=== PATIENT | male | born 1965 | race Caucasian/White ===

== ENCOUNTER 2023-05-27 08:36 | Observation (INO) ==
--- NOTE | 2023-04-29 09:54 | PAT Medication Instructions ---
Medication Instructions Date of Service April 29, 2023 Home Medications omeprazole 20 mg tablet,delayed release 20 mg PO QAM fexofenadine 180 mg tablet (Moon Allergy) 180 mg PO QAM losartan 100 mg tablet (Cozaar) 100 mg PO QAM famotidine 20 mg tablet 20 mg PO QAM ibuprofen 200 mg tablet 600 mg PO QAM lisinopril 10 mg tablet 10 mg PO QAM ASK your surgeon for instructions ibuprofen 200 mg tablet 600 mg PO QAM DO NOT take the morning of surgery fexofenadine 180 mg tablet (Moon Allergy) 180 mg PO QAM losartan 100 mg tablet (Cozaar) 100 mg PO QAM lisinopril 10 mg tablet 10 mg PO QAM Take morning of surgery With a small sip of water, OTHERWISE NOTHING TO EAT OR DRINK AFTER MIDNIGHT: omeprazole 20 mg tablet,delayed release 20 mg PO QAM famotidine 20 mg tablet 20 mg PO QAM Other Notes If you have any questions please call us at [phone] or [phone] or [phone] or [phone]
--- NOTE | 2023-05-05 08:53 | History & Physical Report ---
Date of Service May 05, 2023 date of surgery: 05/27/23 Procedure: Left Knee Poly Exchange Surgeon: Antony Tate Assessment & Plan (1) Painful total knee replacement, left: Plan: Risk and benefits of the procedure were discussed in detail, he has elected proceed with surgical invention. Plan to be left knee polyethylene exchange. Will place on aspirin 81 mg twice a day for 1 month postop. Patient will require overnight stay with plan on discharge home with home health physical therapy. Follow-up 2 weeks after surgery sooner if he is having any issues The risks and benefits have been discussed including, but not limited to, risk of infection, nerve injury, stiffness, loss of motion, failure to improve, etc. Reasonable outcomes and options of treatment were discussed. An explanation of appropriate alternatives to the procedure that may be advantageous were discussed and their risks and benefits, as well as the risks and benefits of not proceeding with treatment. I offered to answer any additional inquiries concerning the treatment involved. All the patient's questions were answered. The patient is agreeable, understanding of the treatment plan and alternatives, and wishes to proceed with the treatment plan. History of Present Illness Chief Complaint: left knee pain Primary Care Provider: EDIN PCP Alphonse presents for preop evaluation prior to left knee poly exchange. He has a history of left total knee replacement performed in [place] [address] Tate, was doing reasonably well up until recently. He states about a month ago he began having increased laxity in his knee, denies any injuries or trauma. X-rays were taken which did not show any acute findings or signs of loosening. At this point, further care as was discussed and would like to proceed with a left knee poly exchange. Sizes are size 5 femur, 5 tibia, 9 polyethylene and 32 patella Allergies Allergy/AdvReac Type Severity Reaction Status Date / Time No Known Allergies Allergy Verified 04/24/23 09:31 Home Medications Medication Instructions Recorded Confirmed Type omeprazole 20 mg tablet,delayed 20 mg PO QAM 07/24/18 04/24/23 History release fexofenadine 180 mg tablet 180 mg PO QAM 08/19/21 04/24/23 History (Moon Allergy) losartan 100 mg tablet (Cozaar) 100 mg PO QAM 08/19/21 04/24/23 History famotidine 20 mg tablet 20 mg PO QAM 04/24/23 04/24/23 History ibuprofen 200 mg tablet 600 mg PO QAM 04/24/23 04/24/23 History lisinopril 10 mg tablet 10 mg PO QAM 04/24/23 04/24/23 History Past Med/Surg History Medical History Alcohol use GERD (gastroesophageal reflux disease) Hypertension Surgical History History of arthroscopy of left knee x3 History of arthroscopy of right knee x3 History of hernia surgery History of total bilateral knee replacement B/L TKA (01/22/11): SAB + PNB at [facility] Family History Other No family history of adverse response to anesthesia Social History Smoking Status: Current every day smoker Cigarettes Per Day: 3 cigars a day (advised); Second Hand Exposure: No; Do You Dip or Chew Tobacco: Yes (chews (advised)); Tobacco Cessation Education Requested by Patient: No Hx Alcohol Use: Yes ("roughly 8 beers a night") Alcohol type: beer Hx Substance Use: No Preferred Language: Khmer Communication Ability: Effective Magazine Supervisor Required: No Beliefs That Will Affect Care: None Current Living Situation: Spouse and Family Current Living Situation Comment: Lives with and 17yr old daughter Other Information That Helps Us Care for You: No Feels Safe at Home: Yes Safety Concerns: Feels Safe At This Time Assistive Devices: Glasses Review of Systems Review of Systems: All systems reviewed & are unremarkable except as noted in HPI & below Constitutional: no fever, no chills and no sweats Respiratory: no cough and no dyspnea Cardiovascular: no chest pain, no dyspnea and no orthopnea Gastrointestinal: no abdominal pain, no nausea and no vomiting Musculoskeletal: as per Subjective / HPI Physical Exam Constitutional: WD/WN, vitals as above no acute distress Respiratory: normal respiratory effort, lungs clear to auscultation no respiratory distress, no labored breathing and does not use accessory muscles Cardiovascular: RRR, no murmur, no edema Gastrointestinal (Abdomen): normal bowel sounds, soft, nontender, no hepatosplenomegaly Musculoskeletal: Left Knee Exam Ambulates with a limp, overall neutral alignment, there is no atrophy warmth or ecchymosis noted, mild effusion, maximum tenderness anterior knee joint. negative patellar Apprehension , no crepitation with motion, valgus stress Negative, Varus stress Negative, no Extensor lag, Pain with Active range of motion, also passive painful ROM, Range of motion 0/3/115. No pain with active/passive ROM of ankle. Lower Extremity Strength normal. Lower Extremity Neuro-vascular is normal Results & Data Results & Data Diagnostic Findings 3 views left knee: Cemented total knee arthroplasty in acceptable position and alignment. No evidence of loosening or loss of fixation is noted. No evidence of osteolysis. The patella is tracking well and is in acceptable position.
--- NOTE | 2023-05-06 09:21 | Anesthesiology Consultation ---
Date of Service May 06, 2023 Assessment & Plan (1) Encounter for pre-operative examination: - COVID screening: Per assessment on 05/06: No known COVID-19 positive contacts or current COVID-19 related symptoms. Travel screen negative. At surgeon discretion if preop Covid testing being done. - PCP visit (04/29/23): "PMHx EtOH dependence/HTN/GERD/elevated fasting glucose.. Reviewed the procedure and risks, especially with regard to his h/o difficult airway for intubation as well as ongoing tobacco and alcohol use.. He is deemed a low/moderate risk for complications of surgery and may elect to proceed..Sinusitis resolving, continue supportive care.. Alcohol dependence 10- 12 beers daily.. Cessation reviewed.. Pt elects to continue" > Patient subs equently seen at [facility] 05/06/23 and indicates feeling well/denies infectious/Covid- related symptoms. Per PCP records, h/o difficult intubation- per patient, possible with remote surgery but states that he was never told any issues with anesthesia/intubation in the past. Attempts to obtain more information unsuccessful. SAB without issue with 2011 B/L TKA at [facility] - Heavy ETOH use: 8-10 beers/day (has been trying to decrease ETOH use). Typically between 1711-9790. No morning ETOH use per patient. Chart Review Chart Review: Acceptable Risk for Surgery and Patient seen in Pre Admission Testing Teaching & Discussion Pre-Anesthesia Teaching/Discussion Notes: Instructed NPO after midnight before surgery,except medications with 15 cc of water. Medication instructions provided according to the [facility] guidelines. History Surgery Operation Date: 05/27/23 08:25 Proposed Procedures p Left Knee Poly Exchange - Antony Tate DO Height/Weight Height: 5 ft 9 in Weight: 68 kg Allergies Allergy/AdvReac Type Severity Reaction Status Date / Time No Known Allergies Allergy Verified 04/24/23 09:31 Medications Home Medications Medication Instructions Recorded Confirmed Last Taken omeprazole 20 mg tablet,delayed 20 mg PO QAM 07/24/18 04/24/23 08/19/21 release fexofenadine 180 mg tablet 180 mg PO QAM 08/19/21 04/24/23 08/18/21 (Moon Allergy) losartan 100 mg tablet (Cozaar) 100 mg PO QAM 08/19/21 04/24/23 08/19/21 famotidine 20 mg tablet 20 mg PO QAM 04/24/23 04/24/23 Unknown ibuprofen 200 mg tablet 600 mg PO QAM 04/24/23 04/24/23 Unknown lisinopril 10 mg tablet 10 mg PO QAM 04/24/23 04/24/23 Unknown Past Medical History Medical History Alcohol use GERD (gastroesophageal reflux disease) Hypertension Exercise / Class Metabolic Activity II 4-5 Yardwork/Stairs/Walk up hill (one FS (no CP, no SOB)) Past Family History Family History Other No family history of adverse response to anesthesia Past Surgical History Surgical History History of arthroscopy of left knee x3 History of arthroscopy of right knee x3 History of hernia surgery History of total bilateral knee replacement B/L TKA (01/22/11): SAB + PNB at [facility] Past Anesthesia History No Hx of Anesthesia Complications and No Family Hx of Anesthesia Complications History of PONV No Hx of PONV and No Hx of Motion Sickness Social History Smoking Status: Current every day smoker tobacco type: cigars and smokeless tobacco Smoking cigarettes per day: 3 cigars a day (advised) Do You Dip or Chew Tobacco: Yes (chews (advised)) Hx Alcohol Use: Yes ("roughly 8 beers a night") Alcohol type: beer alcohol intake frequency: 3 or more drinks per day (8-10 beers/day (has been trying to decrease ETOH use). Typically between 7082-4633. No morning ETOH use per patient.) Hx Substance Use: No substance use type: does not use Review of Systems Patient denies chest pain, shortness of breath, dyspnea on exertion, fever, chills, cough, wheezing, palpitations. Physical Exam Vital Signs VITALS BP 166/92 P 86 TEMP 98.8 SP02 99%RA RESP 16 PHYSICAL Full cervical extension range of motion. Full TMJ range of motion. TMD 3.5 finger breaths Mallampati Score 2 Dentition: intact Lungs: clear throughout to auscultation Cardiac: regular rate and rhythm, no murmurs noted Spine: normal Carotid arteries: negative bruit Extremities: no LE edema Lab Results Anesthesia Preop Results Results Anesthesia Widget: WBC 9.14 K/ul (4.8-10.8) 05/06/23 Hgb 14.2 g/dl (14.0-18.0) 05/06/23 Hct 39.4 % (42.0-52.0) L 05/06/23 Plt 241 K/uL (130-400) 05/06/23 Na 139 mmol/L (136-145) 05/06/23 K 4.3 mmol/L (3.5-5.1) 05/06/23 Cl 109 mmol/L (98-107) H 05/06/23 CO2 26 mmol/L (21-32) 05/06/23 BUN 14 mg/dl (6-23) 05/06/23 Creat 0.81 mg/dl (0.6-1.4) 05/06/23 Glucose Level 109 mg/dl (70-99(Fasting)) H 05/06/23 PT 10.9 Seconds (9.0-12.0) 05/06/23 PTT 27.3 Seconds (21.0-31.0) 05/06/23 INR 1.0 (0.9-1.1) 05/06/23 HA1c 5.4 % (4.5-5.6) 05/06/23 Urine Color Yellow 05/06/23 Urine Appearance Clear (Clear) 05/06/23 Urine pH 6.0 (4.5-7.5) 05/06/23 Urine Specific [place] 1.019 (1.000-1.030) 05/06/23 Urine Protein Negative (Negative) 05/06/23 Urine Glucose (UA) Negative (Negative) 05/06/23 Urine Ketones Trace (Negative) H 05/06/23 Urine Blood Negative (Negative) 05/06/23 Urine Nitrite Negative (Negative) 05/06/23 Urine Bilirubin Negative (Negative) 05/06/23 Urine Urobilinogen Negative (Negative) 05/06/23 Urine Leukocyte Esterase Negative (Negative) 05/06/23 Blood Type O Positive 05/06/23 Antibody Screen NEGATIVE 05/06/23 Testing Electrocardiogram Date: 05/06/23 NSR at 79bpm. Possible LAE. LVH. No significant change compared to 08/19/2021 per resolution manager comparison. Chest X-Ray Date: 05/06/23 Findings: + NAD COVID-19 Risk Screen Screening Information COVID-19 Screen Date: 05/06/23 Exposure 21 Days Family/Household +COVID Last 21 Days: No Exposure 10 Days Any COVID Exposure Last 10 Days: No Symptoms Last 10 Days Experienced COVID Sx Last 10 Days: No + COVID 0-90 Days COVID + in Last 0-90 Days: No
[~2023-05-27 08:36] MED LIST: ACETAMINOPHEN 500 MG TAB PO SCH; CeleBREX 200 MG CAP PO SCH; FAMOTIDINE 20 MG TAB PO SCH; GABAPENTIN 600 MG DOSE PO SCH; LR 500ML BOLUS, THEN 15ML/HR IV SCH; METOCLOPRAMIDE HCL 10 MG TABLET PO SCH; ROPIVACAINE 0.5% 5 MG/ML 30 ML VIAL ONE; ROPIVACAINE 0.5% HCL/PF 150 MG, BUPIVACAINE 0.75% MPF 20 ML, EPINEPHrine 30MG/30ML (OR ... INSTIL SCH; TRANEXAMIC ACID 1,000 MG **IV Intra-op IV SCH; TRANEXAMIC ACID 1,000 MG **IV Pre-op IV SCH; ceFAZolin 2000MG 2,000 MG/15 ML SYR IV SCH; dexAMETHasone 4 MG TAB PO SCH
--- NOTE | 2023-05-27 09:20 | History & Physical Bridge Note ---
Date of Service May 27, 2023 History & Physical Bridge Note I have examined the patient, reviewed the History & Physical and in the interval since the performance of the History & Physical I have noted the following changes of clinical significance: no changes noted
[2023-05-27] MEDS ORDERED: MIDAZOLAM HCL 1 MG/ML 2ML VIAL ONE ×2 (09:42→11:17)
[2023-05-27] MEDS ORDERED: PROPOFOL IV EMULSION 10 MG/ML 20 ML VIAL IV ONE (09:43)
[2023-05-27] MEDS ORDERED: fentaNYL citrate PF 100 MCG/2 ML VIAL ONE (09:43)
[2023-05-27] MEDS ORDERED: LIDOCAINE 2% 2 ML VIAL/AMP(20MG/ML) INFIL ONE (09:43)
[2023-05-27] MEDS ORDERED: ONDANSETRON INJ 2 MG/ML 2 ML VIAL ONE (09:44)
[2023-05-27] MEDS ORDERED: DEXAMETHASONE SOD INJ 4 MG/ML VIAL ONE (09:44)
[2023-05-27] MEDS ORDERED: ONDANSETRON INJ 2 MG/ML 2 ML VIAL IV PRN ×2 (11:01→14:10)
[2023-05-27] MEDS ORDERED: HYDROmorphone INJ 2 MG/ML SYR/VIAL IV PRN (11:01)
[2023-05-27] MEDS ORDERED: ATROPINE SULFATE 0.1 MG/ML 10ML SYR IV PRN (11:01)
[2023-05-27] MEDS ORDERED: fentaNYL citrate PF 100 MCG/2 ML VIAL IV PRN (11:01)
[2023-05-27] MEDS ORDERED: ePHEDrine sulfate 50 MG/ML AMP IV PRN (11:01)
[2023-05-27] MEDS ORDERED: ORTHO JOINT ANESTHETIC ONE (11:03)
[2023-05-27] MEDS ORDERED: LABETALOL HCL IV 5 MG/ML 20ML IV ONE (12:08)
--- NOTE | 2023-05-27 12:19 | Operative Report ---
Post Operative Report Pre & Post Diagnosis Operation Date: 05/27/23 11:15 Pre-Op Diagnosis: Left Knee Painful Total Knee Post-Op Diagnosis: Left Knee Painful Total Knee I identified the patient and participated in the time-out.: Yes Procedure Operation Date: 05/27/23 11:15 Actual Procedures p Left Knee Poly Exchange(Left)Utilizing [employer] journey 1 poly 11 mm- Antony Tate DO Surgeon Antony Tate DO Genetic Technologist Scott HIGH Estimated Blood Loss 5 Findings Consistent with Post-Op Diagnosis Patient presents after having had total knee arthroplasty greater than 10 years back was doing well and then suddenly had episode where he felt instability in his knee and exam consistent with that of a broken post which confirmed time surgery today with broken journey 1 polyethylene post which was sitting in the suprapatellar pouch Specimens Broken poly- Drains Medium bore Hemovac Anesthesia Type MAC Spinal Regional Complications none Disposition Accompanied Patient To Recovery: No Disposition: Recovery Room Indications Patient presents with a sudden instability of after having broken polypost left total knee arthroplasty journey 1 patient presents with the above intraoperative findings Description of Procedure Patient presents with new onset pain instability about the left knee after having undergone a total knee arthroplasty uncomplicated greater than 10 years prior patient presents with the above intraoperative findings of a broken post after proper prepping draping the left lower extremity incision made over the region of previous incision dissection carried down through subcutaneous tissue to the region of the medial parapatellar incision The patella incision was opened the broken post was sitting in the suprapatellar pouch was removed a partial synovectomy was performed the broken poly was removed it was upsized from a 9 to a size 11 mm thickness journey 1 poly metixene stasis obtained and maintained the wound was irrigated copious muscle sterile saline solution thorough synovectomy was performed debrided back to stable margins operative matter debris was removed the medial parapatellar incision was closed with #1 Vicryl and the strata fix subcu was closed with 2-0 Vicryl and skin was closed with a running V-Loc skin glue and a sterile debbie sive dressing was placed please note LENNOX Akins was an active splint in case dissipated and exposure removal poly replacement poly and wound closure was necessary for the case I attest to the content of the Intraoperative Record and any orders documented therein. Any exceptions are noted below.
--- NOTE | 2023-05-27 13:59 | Anesthesiology Progress Note ---
Date of Service May 27, 2023 Anesthesia Post Procedure Vital Signs Vital Signs: Temp Pulse Pulse Resp BP Pulse Ox O2 Del Method 05/27/23 13:45 61 15 109/61 98 Room Air 05/27/23 13:35 74 14 106/60 96 Room Air 05/27/23 13:25 36.9 C 80 16 117/63 98 Room Air 05/27/23 13:05 75 20 121/72 99 Oxymask 05/27/23 13:15 64 16 98/65 L 95 Room Air 05/27/23 12:55 72 13 123/62 98 Oxymask 05/27/23 12:45 36.4 C L 78 15 104/69 97 Oxymask 05/27/23 09:25 36.9 C 81 20 154/88 H 100 Room Air O2 Flow Rate 05/27/23 13:45 05/27/23 13:35 05/27/23 13:25 05/27/23 13:05 5 05/27/23 13:15 05/27/23 12:55 9 05/27/23 12:45 9 05/27/23 09:25 Transfer of Care Handoff Completed per policy Notes Mental Status: alert / awake / arousable and participated in evaluation Patient Amnestic to Procedure: Yes Nausea / Vomiting: adequately controlled Pain: adequately controlled Airway Patency, RR, SpO2: stable & adequate BP & HR: stable & adequate Hydration State: stable & adequate Neuraxial Anesthesia: was administered and sensory block is resolving Anesthetic Complications: no major complications apparent and Pt Satisfied with anesthetic care
[2023-05-27] MEDS ORDERED: NALOXONE HCL 0.4 MG/1 ML VIAL/CARP IV PRN (14:10)
[2023-05-27] MEDS ORDERED: diphenhydrAMINE Capsule 25 MG CAP PO PRN (14:10)
[2023-05-27] MEDS ORDERED: oxyCODONE HCL IR 5 MG TAB (IMMEDIATE RELEASE) PO PRN (14:10)
[2023-05-27] MEDS ORDERED: MAGNESIUM HYDROXIDE SUSP 30 ML UDC PO PRN (14:10)
[2023-05-27] MEDS ORDERED: HYDROmorphone INJ 1 MG/ML SYRINGE IV PRN (14:10)
[2023-05-27] MEDS ORDERED: METOCLOPRAMIDE HCL INJ 5 MG/ML 2 ML VIAL IV PRN (14:10)
[2023-05-27] MEDS ORDERED: bisacodyL 10 MG SUPP PR PRN (14:10)
[2023-05-27] MEDS: SODIUM CHLORIDE 0.9% 1000ML 1,000 ML IV SCH ×2 (14:18→20:19)
[2023-05-27] MEDS: ACETAMINOPHEN 500 MG TAB PO SCH ×2 (14:40→23:14)
--- NOTE | 2023-05-27 15:27 | XRay Report ---
TWO VIEWS LEFT KNEE CLINICAL HISTORY: Postoperative examination. FINDINGS: AP and crosstable lateral portable views of the left knee are obtained. A left knee arthrop lasty is in near anatomic alignment. There has been undersurface remodeling of the patella. No acute fracture is seen. There are expected postoperative changes around the knee including skin clips, soft tissue edema, and subcutaneous gas. IMPRESSION: Expected postoperative changes status post left knee arthroplasty. No acute fracture is s een. ACT 112: Negative or not required by law. Electronically signed by: Edvin Nixon M.D. 05/27/2023 3:25 PM
[2023-05-27] MEDS: KETOROLAC TROMETHAMINE 15 MG/ML VIAL IV SCH ×2 (17:01→23:16)
[2023-05-27] MEDS: ceFAZolin 2000MG 2,000 MG/15 ML SYR IV SCH (17:01)
[2023-05-27] MEDS: DOCUSATE SODIUM 100 MG CAP PO SCH (20:24)
[2023-05-27] MEDS: ASPIRIN 81 MG ECTAB PO SCH (20:26)
[2023-05-27] MEDS ORDERED: SENNA 8.6 MG TAB PO SCH (21:00)
[2023-05-27] MEDS ORDERED: CeleBREX 200 MG CAP PO SCH (21:00)
[2023-05-28] MEDS: ceFAZolin 2000MG 2,000 MG/15 ML SYR IV SCH (02:12)
[2023-05-28] MEDS: ACETAMINOPHEN 500 MG TAB PO SCH (05:55)
[2023-05-28] MEDS: KETOROLAC TROMETHAMINE 15 MG/ML VIAL IV SCH (05:57)
[2023-05-28 06:41] LABS: Hematocrit (blood only) 37.9 % (42.0-52.0); Hemoglobin 13.5 g/dl (14.0-18.0); Mean Corpuscular Hemoglobin 33.8 pg (25.0-34.0); Mean Corpuscular Hgb Conc 35.6 g/dL (32.0-36.0); Mean Corpuscular Volume 94.8 fL (80.0-100.0); Mean Platelet Volume 10.4 fL (9.4-12.4); Platelet Count 200 K/uL (130-400); RDW Coefficient of Variation 13.9 % (11.5-14.5); RDW Standard Deviation 48.9 fL (36.4-46.3); White Blood Count 9.05 K/ul (4.8-10.8)
[2023-05-28 07:17] LABS: BUN Creatinine Ratio 21.1 (10-20); Calcium 7.8 mg/dl (8.6-10.3); Creatinine Clr Calc Pharmacy 107.6 ml/min; Est GFR (African American) 122.4 ml/min; Est GFR (Non-African American) 105.6 ml/min; Potassium 3.6 mmol/L (3.5-5.1)
[2023-05-28] MEDS: ASPIRIN 81 MG ECTAB PO SCH (07:43)
[2023-05-28] MEDS: DOCUSATE SODIUM 100 MG CAP PO SCH (07:43)
[2023-05-28] MEDS ORDERED: FAMOTIDINE 20 MG TAB ONE (07:47)
[2023-05-28] MEDS ORDERED: FEXOFENADINE HCL 180 MG TAB PO SCH (09:00)
[2023-05-28] MEDS ORDERED: lisinopril 10 MG TAB PO SCH (09:00)
[2023-05-28] MEDS ORDERED: FAMOTIDINE 20 MG TAB PO SCH (09:00)
[2023-05-28] MEDS ORDERED: LOSARTAN POTASSIUM 50 MG TAB PO SCH (09:00)
[2023-05-28] MEDS ORDERED: MULTIVITAMIN TAB PO SCH (09:00)
--- NOTE | 2023-05-28 09:32 | Orthopedic Progress Note ---
Date of Service May 28, 2023 Assessment & Plan (1) Painful total knee replacement, left: Plan: POD #1 s/p left knee poly exchange for broken post pt/ot dvt proph with MONALISA/SCD/ASA plan for d/c home with home exercise program Admission and Anticipated Discharge Date Admission Date: May 27, 2023 Subjective POD #1 s/p Left knee poly exchange Review of Systems Constitutional: no fever, no chills and no sweats Respiratory: no cough and no dyspnea Cardiovascular: no chest pain and no dyspnea Gastrointestinal: no abdominal pain, no nausea and no vomiting Physical Exam Physical Exam: Vital Signs Temp 36.7 C 05/28/23 07:09 Pulse 61 05/28/23 07:09 Resp 16 05/28/23 07:09 BP 161/93 H 05/28/23 07:09 Pulse Ox 99 05/28/23 07:09 O2 Del Method Room Air 05/28/23 07:09 O2 Flow Rate 5 05/27/23 13:05 Intake & Output 05/27/23 05/28/23 05/28/23 18:59 06:59 18:59 Intake Total 3100 / 4941.667 1841.667 / 4941.66 7 Output Total 405 / 905 500 / 905 Balance 2695 / 4036.667 1341.667 / 4036.66 7 Weight 64.7 kg Intake: IV 1200 / 2801.667 1601.667 / 2801.66 7 Lactated Ringe r's 1,000 ml @ 15 1000 / 1000 mls/hr IV .Q24 H JULIA Rx#: [id number] Sodium Chlorid e 0.9% 1000ML 1, 1601.667 / 1601.66 7 000 ml @ 100 m ls/hr IV .Q10H JULIA Rx#:[id number] Tranexamic Aci d / 0.7% NaCl 1, 200 / 200 000 mg In 100 ml @ 600 mls/hr IV TODAY@0600 JULIA Rx#:[id number] IV Perioperative 1900 / 1900 Oral 240 / 240 Output: Urine 400 / 900 500 / 900 Estimated Blood Loss 5 / 5 Other: Weight Measureme nt Method Standing Scale Musculoskeletal: Left Leg: NVDI, calf SNT, negative tru sign. DP palpable, able to wiggle toes/ankle movement without difficulty. dressing clean dry and intact. Results & Data Vital Signs (Past 12 Hours) Vital Signs Temp Pulse Resp BP Pulse Ox O2 Del Method 05/28/23 07:09 36.7 C 61 16 161/93 H 99 Room Air 05/28/23 02:15 36.5 C 64 18 132/82 98 Room Air 05/27/23 22:50 36.6 C 70 18 145/78 H 97 Room Air Laboratory Results Laboratory Results WBC 9.05 K/ul (4.8-10.8) 05/28/23 05:44 RBC 4.00 M/uL (4.70-6.10) L 05/28/23 05:44 Hgb 13.5 g/dl (14.0-18.0) L 05/28/23 05:44 Hct 37.9 % (42.0-52.0) L 05/28/23 05:44 MCV 94.8 fL (80.0-100.0) 05/28/23 05:44 MCH 33.8 pg (25.0-34.0) 05/28/23 05:44 MCHC 35.6 g/dL (32.0-36.0) 05/28/23 05:44 RDW Std Deviation 48.9 fL (36.4-46.3) H 05/28/23 05:44 RDW Coeff of Zeferino 13.9 % (11.5-14.5) 05/28/23 05:44 Plt Count 200 K/uL (130-400) 05/28/23 05:44 MPV 10.4 fL (9.4-12.4) 05/28/23 05:44 Sodium 140 mmol/L (136-145) 05/28/23 05:44 Potassium 3.6 mmol/L (3.5-5.1) 05/28/23 05:44 Chloride 111 mmol/L (98-107) H 05/28/23 05:44 Carbon Dioxide 24 mmol/L (21-32) 05/28/23 05:44 Anion Gap 5 (3-11) 05/28/23 05:44 BUN 15 mg/dl (6-23) 05/28/23 05:44 Creatinine 0.71 mg/dl (0.6-1.4) 05/28/23 05:44 Est Cr Clr Drug Dosing 107.6 ml/min 05/28/23 05:44 Est GFR ( Amer) 122.4 ml/min 05/28/23 05:44 Est GFR (Non-Af Amer) 105.6 ml/min 05/28/23 05:44 BUN/Creatinine Ratio 21.1 (10-20) H 05/28/23 05:44 Glucose 141 mg/dl (70-99(Fasting)) H 05/28/23 05:44 Calcium 7.8 mg/dl (8.6-10.3) L 05/28/23 05:44 SARS-CoV-2, RNA, NAAT Cancelled 05/27/23 Unknown SARS-CoV-2, RNA, NAAT NEGATIVE (NEGATIVE) 05/27/23 Unknown Impressions Knee X-Ray 05/27/23 12:03 TWO VIEWS LEFT KNEE CLINICAL HISTORY: Postoperative examination. FINDINGS: AP and crosstable lateral portable views of the left knee are obtained. A left knee arthroplasty is in near anatomic alignment. There has been undersurface remodeling of the patella. No acute fracture is seen. There are expected postoperative changes around the knee including skin clips, soft tissue edema, and subcutaneous gas. IMPRESSION: Expected postoperative changes status post left knee arthroplasty. No acute fracture is seen. ACT 112: Negative or not required by law. Electronically signed by: Edvin Nixon M.D. 05/27/2023 3:25 PM
--- NOTE | 2023-05-28 10:07 | Discharge Summary ---
Date of Service date of discharge: May 28, 2023 Date of admission: 05/27/23 Admission HPI Per Admitting Provider Alphonse presents for preop evaluation prior to left knee poly exchange. He has a history of left total knee replacement performed in [place] [address] Brady, was doing reasonably well up until recently. He states about a month ago he began having increased laxity in his knee, denies any injuries or trauma. X-rays were taken which did not show any acute findings or signs of loosening. At this point, further care as was discussed and would like to proceed with a left knee poly exchange. Sizes are size 5 femur, 5 tibia, 9 polyethylene and 32 patella Principal Diagnosis broken post left total knee Discharge Exam Vital Signs Temp 36.7 C 05/28/23 07:09 Pulse 61 05/28/23 07:09 Resp 16 05/28/23 07:09 BP 161/93 H 05/28/23 07:09 Pulse Ox 99 05/28/23 07:09 O2 Del Method Room Air 05/28/23 07:09 O2 Flow Rate 5 05/27/23 13:05 Intake & Output 05/27/23 05/28/23 05/28/23 18:59 06:59 18:59 Intake Total 3100 / 4941.667 1841.667 / 4941.667 Output Total 405 / 905 500 / 905 Balance 2695 / 4036.667 1341.667 / 4036.667 Weight 64.7 kg Intake: IV 1200 / 2801.667 1601.667 / 2801.667 Lactated Ringer's 1,000 ml @ 15 1000 / 1000 mls/hr IV .Q24H JULIA Rx#: [id number] Sodium Chloride 0.9% 1000ML 1, 1601.667 / 1601.667 000 ml @ 100 mls/hr IV .Q10H JULIA Rx#:[id number] Tranexamic Acid / 0.7% NaCl 1, 200 / 200 000 mg In 100 ml @ 600 mls/hr IV TODAY@0600 JULIA Rx#:[id number] IV Perioperative 1900 / 1900 Oral 240 / 240 Output: Urine 400 / 900 500 / 900 Estimated Blood Loss 5 / 5 Other: Weight Measurement Method Standing Scale Musculoskeletal left knee: NVDI, calf SNT, negative tru sign. DP palpable, able to wiggle toes/ankle movement without difficulty. dressing clean dry and intact. Discharge Data Allergies Allergy/AdvReac Type Severity Reaction Status Date / Time No Known Allergies Allergy Verified 05/27/23 09:15 Procedures Performed Operation Date: 05/27/23 11:15 Actual Procedures p Left Knee Poly Exchange(Left) - Antony Brady DO Ordered Studies 05/27/23 05:00 US - OR guided needle placemen Routine Hospital Course (1) Painful total knee replacement, left: POD #1 s/p left knee poly exchange for broken post pt/ot dvt proph with MONALISA/SCD/ASA plan for d/c home with home exercise program Total Time Total Time Spent Total Time Spent (In Minutes): 20 Discharge Plan Discharge Items Patient Disposition: Home - Home Health Services Reason For Visit: Left Knee Painful Total Knee Discharge Diagnosis: left knee poly exchange Activity: Per Instructions section Weightbearing Comment: WBAT with walker Non-emergency contact: Surgeon Call non-emergency contact if: you have any medication questions, your temperature is above 101, your wound has increased redness, your wound has increased drainage and your wound pain has increased Follow-up/Referrals: PCP,NO [Primary Care Provider] - Diet: Regular Addtl Attending Provider Instructions: ACTIVITY RECOMMENDATIONS: SELF CARE INSTRUCTIONS AFTER TOTAL KNEE REPLACEMENT A. You may need to continue a physical therapy program after discharge from the hospital. There are several options available to you. Your doctor will assist you in selecting the best one for you. 1. An out-patient facility 2 to 3 times a week for therapy or home therapy. 2. Continue working on all exercises taught to you in the hospital. Your goals should be to increase bending of your knee to 90 degrees and beyond and to fully straighten your knee. B. You may progress at your own pace from walking with a walker or crutches to a cane; then to no assistive devices. C. Make walking a part of your daily routine. Be up as much as comfortable with rest periods throughout the day. Rest with leg elevation is very important. Use the ice wrap frequently for the first 3-4 weeks. D. There are no restrictions on activities. You may ride in a car, shop, participate in hat model and all social activities. E. Wear the long elastic stockings (MONALISA hose) 20 hours a day for 2 weeks after surgery. They can be removed several times a day for laundering and for a bath. F. You may shower, no tub baths until cleared by your doctor. SPECIAL CARE INSTRUCTIONS: VERY IMPORTANT TO READ AND REVIEW A. There are a few signs you need to watch for after you are home. Call [facility] [place] if you notice any of the followin. Increased severe knee pain. Some pain is expected especially when you exercise. 2. Increased swelling in your leg or knee; pain or swelling of the calf muscle in either lower leg. 3. Any fluid drainage from the incision. 4. Shortness of breath or chest pain. B. Please call [facility] at if you have any concerns or questions about your operation or recovery. The doctor or his nurse will return your call promptly. C. You must take antibiotics before dental work, bladder, bowel or other surgery. Your doctor will provide you with a permanent care to carry describing this precaution. IMPORTANT: * REMEMBER TO TAKE ASPIRIN, 81 MG, TWICE DAILY FOR 4 WEEKS UNLESS OTHERWISE DIRECTED. THIS IS YOUR BLOOD THINNER. * HIGH RISK PATIENTS MAY BE PRESCRIBED A STRONGER BLOOD THINNER. THIS WILL BE PROVIDED AT DISCHARGE. * CALL IF INCREASED PAIN, REDNESS, DRAINAGE OR FEVER GREATER THAT 101. * WEAR MONALISA HOSE 20 HOURS PER DAY FOR 2 WEEKS. DRESSING INSTRUCTIONS * KIRSTIE Dressing- This is a large suction dressing covering your incision. This will help pull any excess drainage from the wound and allow your incision to heal properly. You may shower with this if you can keep the unit outside of the shower. If any bleeding or leakage is noted please call your doctor's office. This will remain on your incision for 7 days and then should be removed. This can be done yourself or by the home nursing staff if applicable. The entire unit is disposable once removed. Once removed, keep incision clean and dry. If redness or drainage is noted, please call your surgeon. ONCE KIRSTIE IS REMOVED, FOLLOW THESE INSTRUCTIONS: DERMABOND Prineo- This is a mesh tape dressing that is covered with glue. It should remain in place until the incision is properly healed, usually 10-14 days. This dressing is designed to naturally slough off. You may trim the excess mesh tape as it peels off. Incision may be briefly wet in a shower. Dry immediately by blotting with a clean, dry towel. Do not bath or swim until instructed by your doctor. Do not scratch, rub, or pick at the dressing. Do not apply any topical ointments or lotions until dressing is completely removed and/or instructed by your doctor. There may be a small piece of suture material at one end of your incision. Do not pull or trim this. If it is bothersome or catching on clothing, you may cover it with a band-aid. IF INCISION IS LEAKING THROUGH DRESSING, CALL THE OFFICE . FOLLOW UP VISIT: If appointment is not already scheduled: Please call [facility] [place] to make a follow-up appointment for 2 weeks after your surgery at . Pending Studies at Discharge: No Stand-Alone Forms: My [facility] Medications and DC Order Prescriptions: New celecoxib [Celebrex] 200 mg capsule 200 mg PO BID 30 Days Qty: 60 0RF aspirin 81 mg tablet,delayed release (DR/EC) 81 mg PO BID 30 Days Qty: 60 0RF acetaminophen 500 mg tablet 1,000 mg PO Q8 21 Days Qty: 126 0RF cefadroxil 500 mg capsule 500 mg PO BID 14 Days Qty: 28 0RF docusate sodium 100 mg Capsule 100 mg PO BID Qty: 20 0RF oxycodone 5 mg tablet 5 - 10 mg PO Q6H PRN (Reason: pain) Qty: 30 0RF Rx Instructions: ongoing therapy, supervising dr svetlana brady. max 6 tabs in 24 hours Continued omeprazole 20 mg Tablet,Delayed Release (Dr/Ec) 20 mg PO QAM fexofenadine [Moon Allergy] 180 mg Tablet 180 mg PO QAM losartan [Cozaar] 100 mg tablet 100 mg PO QAM famotidine 20 mg tablet 20 mg PO QAM lisinopril 10 mg Tablet 10 mg PO QAM Discontinued ibuprofen 200 mg Tablet 600 mg PO QAM Admission Data Admit Date/Time: 05/27/23 12:03 Attending Provider: Antony Brady Admit Provider: Antony Brady Primary Care Provider: PCP,NO Other Interventions: Discharge Summary Assessment (RN) Last Done: 05/28/23 09:41
[2023-05-28] MEDS ORDERED: CeleBREX 200 MG CAP PO SCH (21:00)
== END 2023-05-28 12:25 | disposition home health service (06) ==
LOC: ASU 08:36 → 3E 08:36

== ENCOUNTER 2023-10-28 12:07 | Inpatient (IN) ==
[2023-10-28] MEDS ORDERED: LABETALOL HCL IV 5 MG/ML 20ML IV STA (12:28)
[2023-10-28] MEDS ORDERED: SODIUM CHLORIDE 0.9% 1,000 ML IV ONE (12:28)
[2023-10-28] MEDS ORDERED: VANCOMYCIN HCL 1,750 MG in SODIUM CHLORIDE 0.9% 500 ML IV ONE (12:29)
[2023-10-28] MEDS ORDERED: VANCOMYCIN CONSULT ACTIVE PRN ×2 (12:29→17:41)
[2023-10-28 12:48] LABS: Basophils # (auto) 0.06 K/uL (0.00-0.20); Basophils % (auto) 0.4 %; Eosinophils # (auto) 0.08 K/uL (0.00-0.50); Eosinophils % (auto) 0.5 %; Hematocrit (blood only) 44.7 % (42.0-52.0); Hemoglobin 15.1 g/dl (14.0-18.0); Immature Granulocytes # (auto) 0.09 K/uL (0.01-0.20); Immature Granulocytes % (auto) 0.6 %; Lymphocytes # (auto) 1.04 K/uL (1.20-3.40); Lymphocytes % (auto) 6.6 %; Mean Corpuscular Hemoglobin 32.7 pg (25.0-34.0); Mean Corpuscular Hgb Conc 33.8 g/dL (32.0-36.0); Mean Corpuscular Volume 96.8 fL (80.0-100.0); Mean Platelet Volume 9.9 fL (9.4-12.4); Monocytes # (auto) 0.81 K/uL (0.11-0.59); Monocytes % (auto) 5.1 %; Neutrophils # (auto) 13.73 K/uL (1.40-6.50); Neutrophils % (auto) 86.8 %; Platelet Count 258 K/uL (130-400); RDW Coefficient of Variation 13.8 % (11.5-14.5); RDW Standard Deviation 49.6 fL (36.4-46.3); Red Blood Count 4.62 M/uL (4.70-6.10); White Blood Count 15.81 K/ul (4.8-10.8)
--- NOTE | 2023-10-28 12:54 | Emergency Department Note ---
Impression & Plan Septic joint, Leukocytosis, Fever, Elevated lactic acid level, Left knee pain ED Provider Note NAME: DAMASO CACERES AGE: 58 SEX: M : 1965 ARRIVES VIA: Walk-In INFORMANT: [Patient] ED PROVIDER(S): [Edvin Mcgarry MD] CHIEF COMPLAINT: Left leg pain HISTORY OF PRESENT ILLNESS: The patient is a 58-year-old male with a prosthetic left knee. The patient states that he has had 5 days of increasing pain and swelling and some erythema. He has had a low-grade fever. He was seen in the ED yesterday and then referred to the outpatient orthopedic office. He had fluid drained from the orthopedic office yesterday and then was called today and informed that he had an infection in the knee and that he would need surgical intervention. There has been no cough or congestion or shortness of breath. No nausea or vomiting. The culture from the knee has so far grown staph. PMHx/PSHx/Social Hx: See Below PHYSICAL EXAM: GENERAL: Patient is in no acute distress. HEENT: No acute trauma, normocephalic atraumatic, mucous membranes moist, no nasal congestion. NECK: No stridor, no adenopathy, no meningismus, trachea is midline. LUNGS: Clear to auscultation bilaterally, no wheeze, no rhonchi, breath sounds equal. HEART: Mildly tachycardic, regular rhythm, no murmurs. ABDOMEN: Soft, nontender, no peritonitis. EXTREMITIES: No cyanosis. There is some swelling and pain with erythema about the left knee. Warmth is present. There is a large joint effusion. NEUROLOGIC: Oriented x 3, no acute motor or sensory deficits, no focal weakness. SKIN: No jaundice, no diaphoresis. DIFFERENTIAL DIAGNOSIS: Bacteremia or sepsis, septic joint, anemia, electrolyte imbalance, dehydration, among others. EMERGENCY DEPARTMENT PROCEDURES: MEDICAL DECISION MAKING: There is a moderate leukocytosis, this would be consistent with infection. There was a normal hemoglobin and platelet count. Sed rate was elevated consistent with ongoing infection/inflammation. Lactic acid level was somewhat elevated making sepsis more likely. C-reactive protein and procalcitonin level were both elevated consistent with infection. Left knee exam showed findings of erythema, swelling and pain with movement. Warmth was present. The patient's left knee joint aspiration from yesterday has grown staph. The patient is in need of a hospital stay. He has a septic left knee joint. This is a prosthetic joint. The patient was given IV saline, he was given IV vancomycin as antibiotic coverage. I did speak with orthopedics, Dr. Brady. Patient is being hospitalized for an orthopedic washout tomorrow. I did speak with case management, the on-call hospitalist was consulted. The patient and his family are aware of the need for a hospital stay. Prior/Outside records/notes reviewed: Yesterday's ED visit note discussing his left knee swelling and the need for referral to the outpatient orthopedic center. Imaging/x-ray results per my interpretation: Chronic Medical/Social conditions affecting care: Prosthetic left knee joint. Care/Management discussed with: Orthopedist, Dr. Brady. The case management team and the on-call hospitalist Level of care consideration(s): After review of the information above and other included data: --I believe the patient requires escalation of care to admission DISPOSITION: Admission with orthopedic intervention. Past Med/Surg History Medical History Hypertension Alcohol use GERD (gastroesophageal reflux disease) Surgical History History of arthroscopy of left knee x3 History of arthroscopy of right knee x3 History of hernia surgery History of total bilateral knee replacement B/L TKA (01/22/11): SAB + PNB at [facility] Family History Other No family history of adverse response to anesthesia Social History Smoking Status: Current every day smoker Cigarettes Per Day: 3 cigars a day (advised); Second Hand Exposure: No; Do You Dip or Chew Tobacco: Yes (chews (advised)); Hx Alcohol Use: Yes ("roughly 8 beers a night") Alcohol type: beer Hx Substance Use: No Preferred Language: Estonian Communication Ability: Effective Nuclear Monitoring Technician Required: No Beliefs That Will Affect Care: None Current Living Situation: Spouse and Family Current Living Situation Comment: Lives with and 17yr old daughter Feels Safe at Home: Yes Assistive Devices: Walker Allergies Allergies Allergy/AdvReac Type Severity Reaction Status Date / Time No Known Allergies Allergy Verified 10/28/23 13:21 Home Meds Home Medications Medication Instructions Recorded Confirmed omeprazole 20 mg tablet,delayed 20 mg PO QAM 07/24/18 10/28/23 release losartan 100 mg tablet (Cozaar) 100 mg PO QAM 08/19/21 10/28/23 amlodipine 5 mg tablet 5 mg PO DAILY 10/28/23 10/28/23 cephalexin 500 mg capsule 500 mg PO Q8H 10/28/23 10/28/23 loratadine 10 mg tablet (Claritin) 10 mg PO DAILY 10/28/23 10/28/23 Previous Rx's Medication Instructions Recorded oxycodone 5 mg tablet 5 - 10 mg (1 - 2 x 5 mg) PO Q6H 05/27/23 PRN pain #30 tabs Results & Data (ED) Vital Signs Vital Signs - 24 hr 10/28/23 12:11 10/28/23 12:30 10/28/23 12:31 Temperature 36.9 C 37.7 C H Temperature Source Temporal Artery Scan Oral Pulse Rate 71 Pulse Rate [Apical] 112 H Respiratory Rate 18 20 Blood Pressure 188/140 H Blood Pressure [Left Arm] 141/81 H Blood Pressure Mean 156 Blood Pressure Mean [Left Arm] 101 Pulse Oximetry 97 Oxygen Delivery Method Room Air Sepsis Recent Fever Within 48 Hours No Sepsis New/Unexplained Change in Mental Status No Sepsis Action Taken by Nursing No Action Required 10/28/23 12:39 10/28/23 12:40 10/28/23 12:42 Temperature Temperature Source Pulse Rate 107 H 116 H Pulse Rate [Apical] Respiratory Rate 23 Blood Pressure 135/67 Blood Pressure [Left Arm] 135/67 Blood Pressure Mean 89 Blood Pressure Mean [Left Arm] 89 Pulse Oximetry 93 Oxygen Delivery Method Sepsis Recent Fever Within 48 Hours Sepsis New/Unexplained Change in Mental Status Sepsis Action Taken by Nursing 10/28/23 12:50 10/28/23 13:00 10/28/23 13:00 Temperature Temperature Source Pulse Rate 105 H 109 H Pulse Rate [Apical] Respiratory Rate 17 Blood Pressure 137/69 Blood Pressure [Left Arm] Blood Pressure Mean 92 Blood Pressure Mean [Left Arm] Pulse Oximetry 95 96 Oxygen Delivery Method Sepsis Recent Fever Within 48 Hours Sepsis New/Unexplained Change in Mental Status Sepsis Action Taken by Nursing 10/28/23 13:10 10/28/23 13:20 10/28/23 13:30 Temperature Temperature Source Pulse Rate 112 H 119 H Pulse Rate [Apical] Respiratory Rate 20 Blood Pressure 132/70 Blood Pressure [Left Arm] Blood Pressure Mean 100 Blood Pressure Mean [Left Arm] Pulse Oximetry 95 96 Oxygen Delivery Method Sepsis Recent Fever Within 48 Hours Sepsis New/Unexplained Change in Mental Status Sepsis Action Taken by Nursing 10/28/23 13:30 10/28/23 13:40 10/28/23 13:50 Temperature Temperature Source Pulse Rate 111 H 119 H 112 H Pulse Rate [Apical] Respiratory Rate 24 18 31 H Blood Pressure Blood Pressure [Left Arm] Blood Pressure Mean Blood Pressure Mean [Left Arm] Pulse Oximetry 94 95 95 Oxygen Delivery Method Sepsis Recent Fever Within 48 Hours Sepsis New/Unexplained Change in Mental Status Sepsis Action Taken by Nursing 10/28/23 14:00 10/28/23 14:00 10/28/23 14:10 Temperature Temperature Source Pulse Rate 119 H 118 H Pulse Rate [Apical] Respiratory Rate 15 27 H Blood Pressure 146/77 H Blood Pressure [Left Arm] Blood Pressure Mean 101 Blood Pressure Mean [Left Arm] Pulse Oximetry 97 97 Oxygen Delivery Method Sepsis Recent Fever Within 48 Hours Sepsis New/Unexplained Change in Mental Status Sepsis Action Taken by Nursing 10/28/23 14:30 10/28/23 14:31 10/28/23 14:31 Temperature Temperature Source Pulse Rate 112 H 109 H Pulse Rate [Apical] Respiratory Rate 22 23 Blood Pressure 130/72 Blood Pressure [Left Arm] Blood Pressure Mean 95 Blood Pressure Mean [Left Arm] Pulse Oximetry 97 96 Oxygen Delivery Method Sepsis Recent Fever Within 48 Hours Sepsis New/Unexplained Change in Mental Status Sepsis Action Taken by Custodial Medications Current Medication List: was personally reviewed by me Laboratory Data Attestation: I reviewed the patient's lab results. 10/28/23 12:30 10/28/23 12:30 Lab Results 10/28/23 10/28/23 Range/Units 12:30 14:31 WBC 15.81 H (4.8-10.8) K/ul RBC 4.62 L (4.70-6.10) M/uL Hgb 15.1 (14.0-18.0) g/dl Hct 44.7 (42.0-52.0) % MCV 96.8 (80.0-100.0) fL MCH 32.7 (25.0-34.0) pg MCHC 33.8 (32.0-36.0) g/dL RDW Std Deviation 49.6 H (36.4-46.3) fL RDW Coeff of Zeferino 13.8 (11.5-14.5) % Plt Count 258 (130-400) K/uL MPV 9.9 (9.4-12.4) fL Immature Gran % (Auto) 0.6 % Neut % (Auto) 86.8 % Lymph % (Auto) 6.6 % [place] % (Auto) 5.1 % Eos % (Auto) 0.5 % Baso % (Auto) 0.4 % Neut # (Auto) 13.73 H (1.40-6.50) K/uL Lymph # (Auto) 1.04 L (1.20-3.40) K/uL [place] # (Auto) 0.81 H (0.11-0.59) K/uL Eos # (Auto) 0.08 (0.00-0.50) K/uL Baso # (Auto) 0.06 (0.00-0.20) K/uL Immature Gran # (Auto) 0.09 (0.01-0.20) K/uL ESR 41 H (0-20) mm/hr Sodium 138 (136-145) mmol/L Potassium 3.6 (3.5-5.1) mmol/L Chloride 103 (98-107) mmol/L Carbon Dioxide 27 (21-32) mmol/L Anion Gap 8 (3-11) BUN 13 (6-23) mg/dl Creatinine 0.95 D (0.6-1.4) mg/dl Est Cr Clr Drug Dosing 84.0 ml/min Est GFR ( Amer) 103.3 ml/min Est GFR (Non-Af Amer) 89.1 ml/min BUN/Creatinine Ratio 13.7 (10-20) Glucose 119 H (70-99(Fasting)) mg/dl Lactate 2.2 H* 1.3 (0.4-2.0) mmol/L Calcium 9.0 (8.6-10.3) mg/dl C-Reactive Protein 32.25 H (0-0.5) mg/dl Procalcitonin 0.61 H (0-0.5) ng/ml Administered Medications Discontinued Medications Sodium Chloride (Nss) 1,000 mls @ 999 mls/hr IV .Q1H1M ONE Stop: 10/28/23 13:28 Last Infusion: 10/28/23 14:04 Dose: Infused Documented By: Admin: 10/28/23 12:44 Dose: 999 mls/hr Documented By: ML Vancomycin HCl 1,750 mg/ (Sodium Chloride) 535 mls @ 200 mls/hr IV NOW ONE Stop: 10/28/23 15:09 Last Admin: 10/28/23 12:44 Dose: 200 mls/hr Documented By: ML Labetalol HCl (Labetalol Hcl Iv 5 Mg/Ml 20ml) 10 mg IV NOW STA Stop: 10/28/23 12:29 Last Admin: 10/28/23 12:40 Dose: Not Given Documented By: ML Discharge Plan Visit Data Chief Complaint: Infection Stated Complaint: LT KNEE PAIN, INFECTION? ED Provider: Edvin Mcgarry Discharge Problem: Septic joint, Leukocytosis, Fever, Elevated lactic acid level, Left knee pain Patient Disposition: Admitted As Inpatient Condition: Fair Forms Stand Alone Forms: [facility] Prescriptions Prescriptions: No Action omeprazole 20 mg Tablet,Delayed Release (Dr/Ec) 20 mg PO QAM losartan [Cozaar] 100 mg tablet 100 mg PO QAM oxycodone 5 mg tablet 5 - 10 mg PO Q6H PRN (Reason: pain) Qty: 30 0RF Rx Instructions: ongoing therapy, supervising dr svetlana brady. max 6 tabs in 24 hours loratadine [Claritin] 10 mg Tablet 10 mg PO DAILY cephalexin [Keflex] 500 mg Capsule 500 mg PO Q8H Rx Instructions: Start Date 10/27/23 - End Date 11/01/23 amlodipine 5 mg tablet 5 mg PO DAILY Referrals Referrals: Ban Garcia DO [Outside Practitioners] - Discharge Problem: Septic joint Qualifiers: Septic arthritis location: knee Septic arthritis organism: staphylococcal L aterality: left Qualified Code(s): M00.062 - Staphylococcal arthritis, left knee Leukocytosis Qualifiers: Leukocytosis type: unspecified Qualified Code(s): D72.829 - Elevated white blood cell count, unspecified Fever Qualifiers: Fever type: unspecified Qualified Code(s): R50.9 - Fever, unspecified Left knee pain Qualifiers: Chronicity: acute Qualified Code(s): M25.562 - Pain in left knee
[2023-10-28 13:15] LABS: BUN Creatinine Ratio 13.7 (10-20); Est GFR (African American) 103.3 ml/min; Est GFR (Non-African American) 89.1 ml/min; Potassium 3.6 mmol/L (3.5-5.1)
[2023-10-28 13:48] LABS: C Reactive Protein 32.25 mg/dl (0-0.5)
--- NOTE | 2023-10-28 14:37 | History & Physical Report ---
Date of Service October 28, 2023 Assessment & Plan (1) Painful total knee replacement, left: Plan: Sepsis Presented to the ER with left knee pain that gradually worsening in intensity. s/p left knee joint aspirated done yesterday by orthopedic that grew staph species Met sepsis criteria on admission with tachycardia, elevated leukocytosis and joint fluid grew staph Left knee xray done on 10/27 showed Large joint effusion with extensive anterior soft tissue swelling within the left knee WBC 15.8, ESR 41, C-reactive protein 32.2 and elevated procalcitonin Received IV vanco in the ER, Will continue vanco Blood cx collected in the ER pending Will follow up joint fluid sensitivity Will monitor CBC Continue pain control Ortho consult - plan to take to OR in am for surgical intervention Will consult ID Will make NPO after midnight Tachycardia Due to sepsis IV labetalol did not administer since HR improved Continue IVF Continue monitor closely HTN Continue Amlodipine 5mg daily Will hold Losartan am dose in am since pt anticipate surgery Continue monitor BP GERD Continue Prilosec DVT px on SCDs due to surgical intervention in am Code status Full code History of Present Illness Chief Complaint: Left knee swelling/pain Primary Care Provider: Guera Del Valle MD 58 years old male with past medical history of hypertension, allergic rhinitis, bilateral knee joint replacement, Left knee spacer with placement in May 2023, tobacco use presented to the ER after received a call from orthopedic office due to left knee infection. Patient was in the ER yesterday for left knee pain and swelling that started last Friday. He He was discharged from the ER with instruction to go directly to the orthopedic clinic for further evaluation. He had the left knee joint aspirated done yesterday by orthopedic. He received a call today that the fluid grew staph species. Patient said he has been having left knee pain since Friday that gradually worsening in intensity. He said pain is worse with walking or bending of the left knee. He grades the pain 10 out of 10 in intensity with walking or bending. He also has been having chills and fever. stated temperature was 102 yesterday when he came to the ER. 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 Denies any chest pain, palpitation, dizziness, shortness of breath. Allergies Allergy/AdvReac Type Severity Reaction Status Date / Time No Known Allergies Allergy Verified 10/28/23 13:21 Home Medications Medication Instructions Recorded Confirmed Type omeprazole 20 mg tablet,delayed 20 mg PO QAM 07/24/18 10/28/23 History release losartan 100 mg tablet (Cozaar) 100 mg PO QAM 08/19/21 10/28/23 History oxycodone 5 mg tablet 5 - 10 mg (1 - 2 x 5 mg) PO Q6H 05/27/23 10/28/23 Rx PRN pain #30 tabs amlodipine 5 mg tablet 5 mg PO DAILY 10/28/23 10/28/23 History cephalexin 500 mg capsule 500 mg PO Q8H 10/28/23 10/28/23 History loratadine 10 mg tablet (Claritin) 10 mg PO DAILY 10/28/23 10/28/23 History Past Med/Surg History Medical History Hypertension Alcohol use GERD (gastroesophageal reflux disease) Surgical History History of arthroscopy of left knee x3 History of arthroscopy of right knee x3 History of hernia surgery History of total bilateral knee replacement B/L TKA (01/22/11): SAB + PNB at [facility] Family History Other No family history of adverse response to anesthesia Social History Smoking Status: Current every day smoker Tobacco Type: Cigars Cigarettes Per Day: 3 cigars a day (advised); Second Hand Exposure: No; Do You Dip or Chew Tobacco: No; Tobacco Cessation Education Requested by Patient: No Hx Alcohol Use: Yes Alcohol type: beer Hx Substance Use: No Preferred Language: Occitan Communication Ability: Effective Drawer In Plain Loom Required: No Beliefs That Will Affect Care: None Current Living Situation: Spouse and Family Current Living Situation Comment: Lives with and 17yr old daughter Other Information That Helps Us Care for You: No Feels Safe at Home: Yes Safety Concerns: Feels Safe At This Time Assistive Devices: Glasses and Hospital Bed Review of Systems Review of Systems: All systems reviewed & are unremarkable except as noted in HPI & below Physical Exam Physical Exam: General- No acute distress Head- atraumatic Eyes- PERRL, EOMI, ENT- oropharynx clear Neck- supple, no JVD Lungs- clear to auscultation Heart- regular rhythm; no murmur Abdomen- normal bowel sounds, soft, nontender Extremities- Left knee swelling, tender, warm with mild erythema Neuro- alert, oriented x 3; PERRL, EOMI; no facial palsy; no dysarthria Skin- warm & dry Results & Data Results & Data Vital Signs (Past 12 Hours) Vital Signs Temp Pulse Pulse Resp BP BP Pulse Ox 10/28/23 14:31 130/72 10/28/23 14:31 109 H 23 96 10/28/23 14:30 112 H 22 97 10/28/23 14:10 118 H 27 H 97 10/28/23 14:00 119 H 15 97 10/28/23 14:00 146/77 H 10/28/23 13:50 112 H 31 H 95 10/28/23 13:40 119 H 18 95 10/28/23 13:30 111 H 24 94 10/28/23 13:30 132/70 10/28/23 13:20 119 H 20 96 10/28/23 13:10 112 H 95 10/28/23 13:00 137/69 10/28/23 13:00 109 H 96 10/28/23 12:50 105 H 17 95 10/28/23 12:42 116 H 10/28/23 12:40 107 H 23 135/67 93 10/28/23 12:39 135/67 10/28/23 12:31 112 H 20 141/81 H 10/28/23 12:30 37.7 C H 10/28/23 12:11 36.9 C 71 18 188/140 H 97 O2 Del Method 10/28/23 14:31 10/28/23 14:31 10/28/23 14:30 10/28/23 14:10 10/28/23 14:00 10/28/23 14:00 10/28/23 13:50 10/28/23 13:40 10/28/23 13:30 10/28/23 13:30 10/28/23 13:20 10/28/23 13:10 10/28/23 13:00 10/28/23 13:00 10/28/23 12:50 10/28/23 12:42 10/28/23 12:40 10/28/23 12:39 10/28/23 12:31 10/28/23 12:30 10/28/23 12:11 Room Air Laboratory Results Laboratory Results WBC 15.81 K/ul (4.8-10.8) H 10/28/23 12:30 RBC 4.62 M/uL (4.70-6.10) L 10/28/23 12:30 Hgb 15.1 g/dl (14.0-18.0) 10/28/23 12:30 Hct 44.7 % (42.0-52.0) 10/28/23 12:30 MCV 96.8 fL (80.0-100.0) 10/28/23 12:30 MCH 32.7 pg (25.0-34.0) 10/28/23 12:30 MCHC 33.8 g/dL (32.0-36.0) 10/28/23 12:30 RDW Std Deviation 49.6 fL (36.4-46.3) H 10/28/23 12:30 RDW Coeff of Zeferino 13.8 % (11.5-14.5) 10/28/23 12:30 Plt Count 258 K/uL (130-400) 10/28/23 12:30 MPV 9.9 fL (9.4-12.4) 10/28/23 12:30 Immature Gran % (Auto) 0.6 % 10/28/23 12:30 Neut % (Auto) 86.8 % 10/28/23 12:30 Lymph % (Auto) 6.6 % 10/28/23 12:30 [place] % (Auto) 5.1 % 10/28/23 12:30 Eos % (Auto) 0.5 % 10/28/23 12:30 Baso % (Auto) 0.4 % 10/28/23 12:30 Neut # (Auto) 13.73 K/uL (1.40-6.50) H 10/28/23 12:30 Lymph # (Auto) 1.04 K/uL (1.20-3.40) L 10/28/23 12:30 [place] # (Auto) 0.81 K/uL (0.11-0.59) H 10/28/23 12:30 Eos # (Auto) 0.08 K/uL (0.00-0.50) 10/28/23 12:30 Baso # (Auto) 0.06 K/uL (0.00-0.20) 10/28/23 12:30 Immature Gran # (Auto) 0.09 K/uL (0.01-0.20) 10/28/23 12:30 ESR 41 mm/hr (0-20) H 10/28/23 12:30 Sodium 138 mmol/L (136-145) 10/28/23 12:30 Potassium 3.6 mmol/L (3.5-5.1) 10/28/23 12:30 Chloride 103 mmol/L (98-107) 10/28/23 12:30 Carbon Dioxide 27 mmol/L (21-32) 10/28/23 12:30 Anion Gap 8 (3-11) 10/28/23 12:30 BUN 13 mg/dl (6-23) 10/28/23 12:30 Creatinine 0.95 mg/dl (0.6-1.4) D 10/28/23 12:30 Est Cr Clr Drug Dosing 84.0 ml/min 10/28/23 12:30 Est GFR ( Amer) 103.3 ml/min 10/28/23 12:30 Est GFR (Non-Af Amer) 89.1 ml/min 10/28/23 12:30 BUN/Creatinine Ratio 13.7 (10-20) 10/28/23 12:30 Glucose 119 mg/dl (70-99(Fasting)) H 10/28/23 12:30 Lactate 1.3 mmol/L (0.4-2.0) 10/28/23 14:31 Calcium 9.0 mg/dl (8.6-10.3) 10/28/23 12:30 C-Reactive Protein 32.25 mg/dl (0-0.5) H 10/28/23 12:30 Procalcitonin 0.61 ng/ml (0-0.5) H 10/28/23 12:30 Diagnostic Findings XR knee LT 3V CLINICAL HISTORY: left knee swelling COMPARISON STUDY: Left knee 05/27/2023. FINDINGS: There is a left total knee arthroplasty. The hardware appears intact. No fracture or dislocation. No abnormal periprosthetic lucency. Large joint effusion with extensive anterior soft tissue swelling. IMPRESSION: Large joint effusion with extensive anterior soft tissue swelling within the left knee. No acute fractures. ACT 112: Negative or not required by law. Electronically signed by: Vahid Belcher M.D. 10/27/2023 9:01 AM Dictated: 10/27/23854 Transcribed: 10/27/23854 Code Status & VTE Plan VTE Prophylaxis Plan VTE Prophylaxis will be ordered: Yes
[2023-10-28] MEDS ORDERED: MoRPHine SULFATE 2 MG/ML CARP IV PRN (17:41)
[2023-10-28] MEDS ORDERED: oxyCODONE HCL IR 5 MG TAB (IMMEDIATE RELEASE) PO PRN (17:41)
--- NOTE | 2023-10-28 18:38 | Pharmacy Report ---
Pharmacy PK ABX Note - Date of Service October 28, 2023 - Assessment and Plan Assessment 58 year old M receiving vancomycin for treatment of prosthetic joint infection. S/p left knee joint aspiration 10/27. Synovial fluid culture prelim (+) Staph spp. Plan for OR tomorrow. Renal function stable. Day #1 of antimicrobial therapy. Plan Vancomycin * Loading dose: 1750 mg IV x 1 * Maintenance dose: 1000 mg IV every 12 hours * Regimen is predicted to achieve target AUC/ZANE of 400-600 mg/L.hr * Random level around steady state Pharmacy will continue to follow and will adjust dose/frequency as necessary. Thank you. Pharmacy has transitioned to AUC monitoring for vancomycin. AUC/ZANE is the preferred PK/PD target and is associated with decreased risk of nephrotoxicity compared to traditional trough targets.
[2023-10-28] MEDS: SODIUM CHLORIDE 0.9% 1,000 ML IV SCH (18:39)
[2023-10-28] MEDS ORDERED: ACETAMINOPHEN 325 MG TAB PO PRN (19:45)
[2023-10-28] MEDS ORDERED: POTASSIUM CHLORIDE CRTAB 20 MEQ TABCR PO STA (19:46)
[2023-10-28 20:56] LABS: Magnesium 1.9 mg/dl (1.7-2.4)
[2023-10-28] MEDS ORDERED: VANCOMYCIN HCL 1,000 MG in SODIUM CHLORIDE 0.9% 250 ML IV SCH (21:00)
[2023-10-28] MEDS: NICOTINE 14 MG/24 HR PATCH TD SCH (21:48)
[2023-10-28] MEDS: VANCOMYCIN HCL 1,000 MG in SODIUM CHLORIDE 0.9% 250 ML IV SCH (21:49)
[2023-10-29 04:57] LABS: Hematocrit (blood only) 39.2 % (42.0-52.0); Hemoglobin 13.6 g/dl (14.0-18.0); Mean Corpuscular Hemoglobin 33.3 pg (25.0-34.0); Mean Corpuscular Hgb Conc 34.7 g/dL (32.0-36.0); Mean Corpuscular Volume 95.8 fL (80.0-100.0); Mean Platelet Volume 9.8 fL (9.4-12.4); Platelet Count 218 K/uL (130-400); RDW Coefficient of Variation 13.8 % (11.5-14.5); Red Blood Count 4.09 M/uL (4.70-6.10); White Blood Count 15.74 K/ul (4.8-10.8)
[2023-10-29 05:16] LABS: BUN Creatinine Ratio 15.1 (10-20); Calcium 8.3 mg/dl (8.6-10.3); Creatinine Clr Calc Pharmacy 109.3 ml/min; Est GFR (African American) 120.2 ml/min; Est GFR (Non-African American) 103.7 ml/min; Potassium 4.3 mmol/L (3.5-5.1)
[2023-10-29 05:35] LABS: C Reactive Protein 32.07 mg/dl (0-0.5)
[2023-10-29] MEDS ORDERED: ROPIVACAINE 0.5% 5 MG/ML 30 ML VIAL ONE (06:37)
--- NOTE | 2023-10-29 06:59 | Orthopedic Consultation ---
Date of Consultation October 29, 2023 Assessment & Plan (1) Painful total knee replacement, left: Left septic prepatellar bursitis versus left septic TKA laboratory values as noted above. ESR of 41 and CRP of 32. Staph species noted on culture drawn in the office. Elevated white count with elevated neutrophil count. x-ray done in the emergency room showing fairly large effusion. Patient will be taken to the operating room today by Dr. Tate for debridement of prepatellar bursa and the possibility of open irrigation and debridement of left TKA with polyethylene bearing change. History of Present Illness Reason for Consultation: Left knee prepatellar septic bursitis versus septic left TKA Attending Physician: Tony Davey MD History of Present Illness patient is a 58-year-old male known to our practice and is status post left TKA polyethylene bearing change in May of this year. Patient states that he has a history of chronic swelling of the left knee and secondary to his work, he is on his knees quite a bit. He has had the knee or the prepatellar bursa drained in the past and states that it has had chronic swelling in it for some time. He states that on Friday of last week it began getting increasingly swollen and he noticed it was getting red. He was having pain in the knee itself and was having some pain with bending the knee. It continued to worsen over the weekend and the patient had come into the emergency room To be seen. Patient was then sent over to Dr. Tate's office where an aspiration was done which eventually grew out staph species. Patient was continued to have some fevers off and on and continued pain. He was admitted yesterday secondary to his positive cultures And to rule out sepsis. Currently the patient is awake and alert and in no acute distress. He states that there has not been much in the way of changes with the knee at this time. Allergies Allergy/AdvReac Type Severity Reaction Status Date / Time No Known Allergies Allergy Verified 10/28/23 13:21 Home Medications Medication Instructions Recorded Confirmed Type omeprazole 20 mg tablet,delayed 20 mg PO QAM 07/24/18 10/28/23 History release losartan 100 mg tablet (Cozaar) 100 mg PO QAM 08/19/21 10/28/23 History oxycodone 5 mg tablet 5 - 10 mg (1 - 2 x 5 mg) PO Q6H 05/27/23 10/28/23 Rx PRN pain #30 tabs amlodipine 5 mg tablet 5 mg PO DAILY 10/28/23 10/28/23 History cephalexin 500 mg capsule 500 mg PO Q8H 10/28/23 10/28/23 History loratadine 10 mg tablet (Claritin) 10 mg PO DAILY 10/28/23 10/28/23 History Patient History Medical History Hypertension Alcohol use GERD (gastroesophageal reflux disease) Surgical History History of total bilateral knee replacement B/L TKA (01/22/11): SAB + PNB at [facility] History of arthroscopy of right knee x3 History of arthroscopy of left knee x3 History of hernia surgery Family History Other No family history of adverse response to anesthesia Social History Smoking Status: Current every day smoker Tobacco Type: Cigars Cigarettes Per Day: 3 cigars a day (advised); Second Hand Exposure: No; Do You Dip or Chew Tobacco: No; Tobacco Cessation Education Requested by Patient: No Hx Alcohol Use: Yes Alcohol type: beer Hx Substance Use: No Preferred Language: Kinyarwanda Communication Ability: Effective Upper And Bottom Lacer Hand Required: No Beliefs That Will Affect Care: None Current Living Situation: Spouse and Family Current Living Situation Comment: Lives with and 17yr old daughter Other Information That Helps Us Care for You: No Feels Safe at Home: Yes Safety Concerns: Feels Safe At This Time Assistive Devices: Glasses and Hospital Bed Physical Exam Physical Exam: Patient is a 58-year-old white male who appears his stated age. Pleasant and cooperative, no acute distress, alert and oriented x 3. On examination of his left knee, he has moderate effusion noted. There is some mild erythema over the patellar region. He has some mild pain on palpation anteriorly. No pain on palpation posteriorly. His collaterals feel stable however with testing lateral collateral causes him some discomfort. He does get flexion of the knee to approximately 40 degrees before stopping secondary to pain. He appears to have full extension. Axial loading does not cause him any pain. Calves are soft and nontender. Right lower extremity is unaffected at this time. There is no gross motor or sensory loss seen at this time. Results & Data Vital Signs (Past 12 Hours) Vital Signs Temp Pulse Pulse Resp BP Pulse Ox O2 Del Method 10/29/23 02:50 36.8 C 90 18 153/89 H 96 Room Air 10/29/23 00:16 97 H 10/29/23 00:16 102 H 10/28/23 23:30 36.8 C 90 18 146/87 H 96 Room Air 10/28/23 20:22 39.5 C H 110 H 19 128/79 94 Room Air Laboratory Results Laboratory Results WBC 15.74 K/ul (4.8-10.8) H 10/29/23 04:11 RBC 4.09 M/uL (4.70-6.10) L 10/29/23 04:11 Hgb 13.6 g/dl (14.0-18.0) L 10/29/23 04:11 Hct 39.2 % (42.0-52.0) L 10/29/23 04:11 MCV 95.8 fL (80.0-100.0) 10/29/23 04:11 MCH 33.3 pg (25.0-34.0) 10/29/23 04:11 MCHC 34.7 g/dL (32.0-36.0) 10/29/23 04:11 RDW Std Deviation 49.0 fL (36.4-46.3) H 10/29/23 04:11 RDW Coeff of Zeferino 13.8 % (11.5-14.5) 10/29/23 04:11 Plt Count 218 K/uL (130-400) 10/29/23 04:11 MPV 9.8 fL (9.4-12.4) 10/29/23 04:11 Immature Gran % (Auto) 0.6 % 10/28/23 12:30 Neut % (Auto) 86.8 % 10/28/23 12:30 Lymph % (Auto) 6.6 % 10/28/23 12:30 [place] % (Auto) 5.1 % 10/28/23 12:30 Eos % (Auto) 0.5 % 10/28/23 12:30 Baso % (Auto) 0.4 % 10/28/23 12:30 Neut # (Auto) 13.73 K/uL (1.40-6.50) H 10/28/23 12:30 Lymph # (Auto) 1.04 K/uL (1.20-3.40) L 10/28/23 12:30 [place] # (Auto) 0.81 K/uL (0.11-0.59) H 10/28/23 12:30 Eos # (Auto) 0.08 K/uL (0.00-0.50) 10/28/23 12:30 Baso # (Auto) 0.06 K/uL (0.00-0.20) 10/28/23 12:30 Immature Gran # (Auto) 0.09 K/uL (0.01-0.20) 10/28/23 12:30 ESR 41 mm/hr (0-20) H 10/28/23 12:30 Sodium 138 mmol/L (136-145) 10/29/23 04:11 Potassium 4.3 mmol/L (3.5-5.1) 10/29/23 04:11 Chloride 107 mmol/L (98-107) 10/29/23 04:11 Carbon Dioxide 24 mmol/L (21-32) 10/29/23 04:11 Anion Gap 7 (3-11) 10/29/23 04:11 BUN 11 mg/dl (6-23) 10/29/23 04:11 Creatinine 0.73 mg/dl (0.6-1.4) 10/29/23 04:11 Est Cr Clr Drug Dosing 109.3 ml/min 10/29/23 04:11 Est GFR ( Amer) 120.2 ml/min 10/29/23 04:11 Est GFR (Non-Af Amer) 103.7 ml/min 10/29/23 04:11 BUN/Creatinine Ratio 15.1 (10-20) 10/29/23 04:11 Glucose 126 mg/dl (70-99(Fasting)) H 10/29/23 04:11 Lactate 1.3 mmol/L (0.4-2.0) 10/28/23 14:31 Calcium 8.3 mg/dl (8.6-10.3) L 10/29/23 04:11 Magnesium 1.9 mg/dl (1.7-2.4) 10/28/23 12:30 C-Reactive Protein 32.07 mg/dl (0-0.5) H 10/29/23 04:11 Procalcitonin 1.69 ng/ml (0-0.5) H 10/29/23 04:10 Diagnostic Findings Name: DAMASO CACERES Acct: [id number] Status: DEP CLI : 1965 Svc Date: Age: 58 Sex: M Dis Date: Loc: Laboratory Main [place] Spec: [id number] Collected: 10/27/23-1114 Received: 10/27/23-[address]: Antony Tate,D.O. Source: Joint Fluid/Space (Synovial) OV Order: Ordered: Aer/Ave Cult/Sm Procedure Result Verified Site Gram Stain Final 10/27/23-1455 Gram Stain Result Many Polys Rare Mononucleated Cells No Organisms Seen Aero/Ave Cult Preliminary 10/28/23-0842 Organism 1 Staphylococcus species Quantity Few Sens Sensitivities to Follow [place], [place] [phone] XRay Report Patient: DAMASO CACERES Admit Date: 10/27/23 MR#: [id number] Address1: [address] [place] [address] Acct ID:[id number] Address2: Date: 1965 [facility] Zip: [place] [address] Age: 58 Location: ED Sex: M Room/Bed: Att Phy: Diagnosis: fluid on left knee Nicky Phy: Ban Garcia DO Service Date: 10/27/23 Fam Phy: Interpreting Phy: Vahid Belcher MDAdmit Phy: Ordering Phy: Jarad Graves M.D. cc: ~ XR knee LT 3V CLINICAL HISTORY: left knee swelling COMPARISON STUDY: Left knee 05/27/2023. FINDINGS: There is a left total knee arthroplasty. The hardware appears intact. No fracture or dislocation. No abnormal periprosthetic lucency. Large joint effusion with extensive anterior soft tissue swelling. IMPRESSION: Large joint effusion with extensive anterior soft tissue swelling within the left knee. No acute fractures. ACT 112
[2023-10-29] MEDS ORDERED: MIDAZOLAM HCL 1 MG/ML 2ML VIAL ONE (07:14)
[2023-10-29] MEDS ORDERED: fentaNYL citrate PF 100 MCG/2 ML VIAL ONE (07:14)
[2023-10-29] MEDS: LACTATED RINGER'S 1,000 ML IV SCH ×2 (07:50→12:46)
[2023-10-29] MEDS ORDERED: HYDROmorphone INJ 2 MG/ML SYR/VIAL IV PRN (07:57)
[2023-10-29] MEDS ORDERED: ATROPINE SULFATE 0.1 MG/ML 10ML SYR IV PRN (07:57)
[2023-10-29] MEDS ORDERED: ePHEDrine sulfate 50 MG/ML AMP IV PRN (07:57)
[2023-10-29] MEDS ORDERED: ONDANSETRON INJ 2 MG/ML 2 ML VIAL IV PRN ×2 (07:57→10:59)
[2023-10-29] MEDS ORDERED: fentaNYL citrate PF 100 MCG/2 ML VIAL IV PRN (07:57)
[2023-10-29] MEDS ORDERED: ORTHO JOINT ANESTHETIC ONE (08:04)
--- NOTE | 2023-10-29 08:18 | History & Physical Bridge Note ---
Date of Service October 29, 2023 History & Physical Bridge Note I have examined the patient, reviewed the History & Physical and in the interval since the performance of the History & Physical I have noted the following changes of clinical significance: no changes noted
[2023-10-29] MEDS ORDERED: LIDOCAINE 2% 2 ML VIAL/AMP(20MG/ML) INFIL ONE (08:40)
[2023-10-29] MEDS ORDERED: PROPOFOL IV EMULSION 10 MG/ML 20 ML VIAL IV ONE (08:40)
[2023-10-29] MEDS ORDERED: KETOROLAC 30 MG/ML VIAL ONE (08:40)
[2023-10-29] MEDS ORDERED: ONDANSETRON INJ 2 MG/ML 2 ML VIAL ONE (08:40)
--- NOTE | 2023-10-29 08:41 | Anesthesiology Consultation ---
Date of Service October 29, 2023 Assessment & Plan ASA ASA3 Proposed Anesthesia Anesthesia Type: General Risk / Benefits Reviewed With: PT / POA / Parent / Guardian, Accepts Plan and Informed Consent Obtained History Surgery Operation Date: 10/29/23 10:40 Proposed Procedures p Left Incision and Drainage Poly Exchange - Antony Tate DO Height/Weight Height: 5 ft 8 in Weight: 70.1 kg Allergies Allergy/AdvReac Type Severity Reaction Status Date / Time No Known Allergies Allergy Verified 10/28/23 13:21 Medications Home Medications Medication Instructions Recorded Confirmed Last Taken omeprazole 20 mg tablet,delayed 20 mg PO QAM 07/24/18 10/28/23 10/28/23 release losartan 100 mg tablet (Cozaar) 100 mg PO QAM 08/19/21 10/28/23 10/28/23 oxycodone 5 mg tablet 5 - 10 mg (1 - 2 x 5 mg) PO Q6H 05/27/23 10/28/23 10/27/23 PRN pain #30 tabs amlodipine 5 mg tablet 5 mg PO DAILY 10/28/23 10/28/23 10/28/23 cephalexin 500 mg capsule 500 mg PO Q8H 10/28/23 10/28/23 10/28/23 loratadine 10 mg tablet (Claritin) 10 mg PO DAILY 10/28/23 10/28/23 10/28/23 Active Medications Generic Name Dose Route Start Last Admin Trade Name Freq PRN Reason Stop Dose Admin Acetaminophen 650 mg 10/28/23 19:45 10/28/23 20:03 Acetaminophen 325 Mg Tab PO 11/27/23 19:44 650 mg QID PRN Administration pain/fever Sodium Chloride 1,000 mls @ 80 mls/hr 10/28/23 17:41 10/28/23 18:39 Nss IV 11/27/23 17:40 80 mls/hr .[id number] JULIA Administration Vancomycin HCl 1,000 mg/ 270 mls @ 200 mls/hr 10/28/23 21:00 10/28/23 23:19 Sodium Chloride IV 12/09/23 20:59 Infused Q12H JULIA Infusion Lactated Ringer's 1,000 mls @ 15 mls/hr 10/29/23 08:00 10/29/23 07:50 Lr IV 11/28/23 07:59 15 mls/hr .Q24H JULIA Administration KVO Nicotine 14 mg 10/28/23 21:00 10/28/23 21:48 Nicotine 14 Mg/24 Hr Patch TD 11/27/23 20:59 Not Given QAM JULIA NPO Date Last Intake of Fluids: 10/29/23 Time Last Intake of Fluids: 03:00 Date Last Intake of Solids: 10/27/23 Past Medical History Medical History Hypertension Alcohol use GERD (gastroesophageal reflux disease) Exercise / Class Metabolic Activity II 4-5 Yardwork/Stairs/Walk up hill Past Family History Family History Other No family history of adverse response to anesthesia Past Surgical History Surgical History History of total bilateral knee replacement B/L TKA (01/22/11): SAB + PNB at [facility] History of arthroscopy of right knee x3 History of arthroscopy of left knee x3 History of hernia surgery Past Anesthesia History No Hx of Anesthesia Complications and No Family Hx of Anesthesia Complications History of PONV No Hx of PONV and No Hx of Motion Sickness Social History Smoking Status: Current every day smoker tobacco type: cigars and smokeless tobacco Smoking cigarettes per day: 3 cigars a day (advised) Do You Dip or Chew Tobacco: No Hx Alcohol Use: Yes Alcohol type: beer alcohol intake frequency: 3 or more drinks per day Hx Substance Use: No substance use type: does not use Review of Systems denies fever/cough/ colds/ chest pain/ SOB/ ELFEGO denies ELFEGO Physical Exam Vital Signs Last Vital Signs Temp 36.9 C 10/29/23 07:42 Pulse 91 H 10/29/23 07:43 Resp 18 10/29/23 07:42 BP 150/92 H 10/29/23 07:42 Pulse Ox 96 10/29/23 07:42 O2 Del Method Room Air 10/29/23 07:42 ENMT Mouth: no TMJ abnormality and no dentition abnormality Thyromental Distance: > or= 3.5 Finger Breadths Mallampati Class: II Neck neck extension not limited Respiratory normal respiratory effort; no respiratory distress Auscultation: lungs clear to auscultation bilaterally Cardiovascular Rate/Rhythm: regular rate and regular rhythm Neurologic moves all extremities Psychiatric Orientation: alert and oriented x 3 Testing Laboratory Results 10/29/23 04:11 10/29/23 04:11
[2023-10-29] MEDS ORDERED: PHENYLEPHRINE 100MCG/ML 10ML SYR IV ONE (08:47)
[2023-10-29] MEDS ORDERED: ceFAZolin 330 MG/ML 1 GM VIAL ONE ×2 (08:58→10:33)
[2023-10-29] MEDS ORDERED: SODIUM CHLORIDE 0.9% PF INJ 10 ML VIAL ONE (08:58)
[2023-10-29] MEDS ORDERED: HYDROmorphone INJ 2 MG/ML SYR/VIAL ONE (09:05)
--- NOTE | 2023-10-29 09:48 | Operative Report ---
Post Operative Report Pre & Post Diagnosis Infected left total knee arthroplasty to Operation Date: 10/29/23 10:40 <No data on this case meets the specified criteria> Infected left total knee arthroplasty I identified the patient and participated in the time-out.: Yes Procedure Incision and drainage left total knee arthroplasty with poly change size 13 journey 1 Operation Date: 10/29/23 10:40 <No data on this case meets the specified criteria> Surgeon Antony Tate DO Net M[employer] Developer Rito HIGH Estimated Blood Loss 10 Findings Consistent with Post-Op Diagnosis Patient presents with a new onset swelling and painful left knee from the weekend had aspiration on Friday in the office initial Gram stain was negative with primary growth cultures that came back with Staphylococcus aureus Specimens Polyethylene Drains Medium bore Hemovac Anesthesia Type General Complications none Disposition Accompanied Patient To Recovery: No Disposition: Recovery Room Indications Patient presents with painful left total knee arthroplasty with a large effusion cultures showing staph species within the knee joint patient presents for incision drainage washout poly change Description of Procedure After initiation of general anesthesia the left lower extremity subsequent prepped draped usual fashion with surgeon's type incision made over the region in the midline previous incision dissection was carried down to the region of the extensor mechanism medial parapatellar incision was made cultures and prepatellar bursa were taken cultures of the purulent joint fluid were taken the wound was irrigated with 3 L of sterile saline solution of the polyethylene had been removed cultures were taken of the femoral tibial component patellar compon ents were all scrubbed with Betadine impregnated scrub brush synovectomies medial lateral anterior compartments were all performed Versajet was used to freshen up all of the tissue the wound was then irrigated with 3 L of sterile saline solution x 2 for total of 6 L the poly has been changed and upsized to a size 13 gave full extension excellent stability in mid flexion and full flexion after a Betadine soak PolyMem placed the wound was irrigated once again with copious amounts of sterile saline solution meticulous hemostasis was obtained and maintained at all times the the drapes had all been changed as were all instruments to a new set up the medium medial parapatellar incision closed over medium bore Hemovac utilizing #0 Vicryl plus the subcu was closed with a 2-0 Vicryl plus skin was closed with skin clips sterile compressive dressing was placed Prevena dressing was placed patient was subsequently taken to the recovery in stable condition please note Rito HIGH was next dispensed the case dissipated and poly removal washout synovectomy wound closure was necessary for the case I attest to the content of the Intraoperative Record and any orders documented therein. Any exceptions are noted below.
--- NOTE | 2023-10-29 10:54 | XRay Report ---
XR knee LT 1 or 2V routine CLINICAL HISTORY: Postoperative evaluation. Infected left knee arthroplasty. COMPARISON: Left knee radiographs October 27, 2023. FINDINGS: Left knee arthroplasty is noted. There is no periprosthetic fracture. There is no peripros thetic lucency. Surgical drains are in place. There are skin ranjith. Left knee joint effusion has si gnificantly decreased in size. The soft tissue swelling is slightly improved. IMPRESSION: Status post incision and drainage. No periprosthetic fractures. No unexpected radiopaque bodies. ACT 112: Negative or not required by law. Electronically signed by: Jaime Cristina M.D. 10/29/2023 10:53 AM
[2023-10-29] MEDS ORDERED: bisacodyL 10 MG SUPP PR PRN (10:59)
[2023-10-29] MEDS ORDERED: NALOXONE HCL 0.4 MG/1 ML VIAL/CARP IV PRN (10:59)
[2023-10-29] MEDS ORDERED: HYDROmorphone INJ 0.5 MG/0.5 ML SYR IV PRN (10:59)
[2023-10-29] MEDS ORDERED: MAGNESIUM HYDROXIDE SUSP 30 ML UDC PO PRN (10:59)
[2023-10-29] MEDS ORDERED: diphenhydrAMINE 50 MG/ML VIAL IV PRN (10:59)
[2023-10-29] MEDS ORDERED: VANCOMYCIN HCL 1,250 MG in SODIUM CHLORIDE 0.9% 250 ML IV SCH (11:00)
[2023-10-29 11:01] LABS: A calco-baum cmplx NotReported Not Detected (NotDetected); Bact fragilis Not Reported Not Detected (NotDetected); Blood Culture Id Panel See PCR Comment (NotDetected); C auris Not Reported Not Detected (NotDetected); Calbicans Not Reported Not Detected (NotDetected); Candida glabrata Not Reported Not Detected (NotDetected); Candida krusei Not Reported Not Detected (NotDetected); Cneoformans/gatti Not Reported Not Detected (NotDetected); Cparapsilosis Not Reported Not Detected (NotDetected); E cloacae compx Not Reported Not Detected (NotDetected); Efaecalis Not Reported Not Detected (NotDetected); Efaecium Not Reported Not Detected (NotDetected); Enterobacterales Not Reported Not Detected (NotDetected); Escherichia coli Not Reported Not Detected (NotDetected); H influenzae Not Reported Not Detected (NotDetected); K aerogenes Not Reported Not Detected (NotDetected); Koxytoca Not Reported Not Detected (NotDetected); Kpneumoniae grp Not Reported Not Detected (NotDetected); Lmonocyt Not Reported Not Detected (NotDetected); N meningitidis Not Reported Not Detected (NotDetected); P aeruginosa Not Reported Not Detected (NotDetected); Proteus spp Not Reported Not Detected (NotDetected); Salmonella spp Not Reported Not Detected (NotDetected); Smarcescens Not Reported Not Detected (NotDetected); Staph lugdunensis Not Reported Not Detected (NotDetected); Staph spp. Not Reported DETECTED (NotDetected); Staphaureus Not Reported DETECTED (NotDetected); Staphepi Not Reported Not Detected (NotDetected); Staphylococcus spp. DETECTED (NotDetected); Stenmaltophilia Not Reported Not Detected (NotDetected); Strep agal(GrpB) Not Reported Not Detected (NotDetected); Strep pneum Not Reported Not Detected (NotDetected); Strep pyog (GrpA) Not Reported Not Detected (NotDetected); Strep spp Not Reported Not Detected (NotDetected); mecAC+MREJ Resistant Gene MRSA Not Detected (NotDetected)
[2023-10-29] MEDS: NICOTINE 14 MG/24 HR PATCH TD SCH (11:56)
[2023-10-29] MEDS: SODIUM CHLORIDE 0.9% 1,000 ML IV SCH ×3 (11:59→21:03)
[2023-10-29] MEDS: amLODIPine BESYLATE 5 MG TAB PO SCH (12:01)
--- NOTE | 2023-10-29 12:06 | Anesthesiology Progress Note ---
Date of Service October 29, 2023 Anesthesia Post Procedure Vital Signs Vital Signs: Temp Pulse Pulse Pulse Resp BP BP 10/29/23 11:33 36.7 C 96 H 18 10/29/23 11:05 36.9 C 104 H 13 10/29/23 10:55 109 H 13 10/29/23 10:45 106 H 13 10/29/23 10:35 107 H 14 10/29/23 10:26 36.9 C 100 H 18 10/29/23 07:43 91 H 10/29/23 07:42 36.9 C 91 H 18 150/92 H 10/29/23 07:35 37.2 C 88 19 165/82 H 10/29/23 02:50 36.8 C 90 18 153/89 H 10/29/23 00:16 97 H 10/29/23 00:16 102 H 10/28/23 23:30 36.8 C 90 18 146/87 H 10/28/23 20:22 39.5 C H 110 H 19 128/79 10/28/23 18:21 39.6 C H 107 H 18 142/78 H 10/28/23 18:06 106 H 20 137/78 10/28/23 16:36 117 H 10/28/23 16:00 116 H 20 154/79 H 10/28/23 14:31 130/72 10/28/23 14:31 109 H 23 10/28/23 14:30 112 H 22 10/28/23 14:10 118 H 27 H 10/28/23 14:00 119 H 15 10/28/23 14:00 146/77 H 10/28/23 13:50 112 H 31 H 10/28/23 13:40 119 H 18 10/28/23 13:30 111 H 24 10/28/23 13:30 132/70 10/28/23 13:20 119 H 20 10/28/23 13:10 112 H 10/28/23 13:00 137/69 10/28/23 13:00 109 H 10/28/23 12:50 105 H 17 10/28/23 12:42 116 H 10/28/23 12:40 107 H 23 135/67 10/28/23 12:39 135/67 10/28/23 12:31 112 H 20 141/81 H 10/28/23 12:30 37.7 C H 10/28/23 12:11 36.9 C 71 18 188/140 H BP Pulse Ox O2 Del Method O2 Flow Rate 10/29/23 11:33 163/95 H 97 Nasal Cannula 2 10/29/23 11:05 161/86 H 98 Nasal Cannula 2 10/29/23 10:55 142/87 H 94 Room Air 10/29/23 10:45 150/96 H 98 Oxymask 9 10/29/23 10:35 176/91 H 98 Oxymask 9 10/29/23 10:26 143/109 H 96 Oxymask 9 10/29/23 07:43 10/29/23 07:42 96 Room Air 10/29/23 07:35 99 Room Air 10/29/23 02:50 96 Room Air 10/29/23 00:16 10/29/23 00:16 10/28/23 23:30 96 Room Air 10/28/23 20:22 94 Room Air 10/28/23 18:21 97 Room Air 10/28/23 18:06 95 Room Air 10/28/23 16:36 10/28/23 16:00 93 Room Air 10/28/23 14:31 10/28/23 14:31 96 10/28/23 14:30 97 10/28/23 14:10 97 10/28/23 14:00 97 10/28/23 14:00 10/28/23 13:50 95 10/28/23 13:40 95 10/28/23 13:30 94 10/28/23 13:30 10/28/23 13:20 96 10/28/23 13:10 95 10/28/23 13:00 10/28/23 13:00 96 10/28/23 12:50 95 10/28/23 12:42 10/28/23 12:40 93 10/28/23 12:39 10/28/23 12:31 10/28/23 12:30 10/28/23 12:11 97 Room Air Pain Intensity Left Knee: Pain Intensity: 5 Transfer of Care Handoff Completed per policy Notes Mental Status: alert / awake / arousable and participated in evaluation Patient Amnestic to Procedure: Yes Nausea / Vomiting: adequately controlled Pain: adequately controlled Airway Patency, RR, SpO2: stable & adequate BP & HR: stable & adequate Hydration State: stable & adequate Anesthetic Complications: no major complications apparent and Pt Satisfied with anesthetic care
[2023-10-29] MEDS: VANCOMYCIN HCL 1,000 MG in SODIUM CHLORIDE 0.9% 250 ML IV SCH (12:46)
[2023-10-29] MEDS: LORATADINE 10 MG TAB PO SCH (13:04)
[2023-10-29] MEDS: PANTOprazole 40 MG TAB PO SCH (13:04)
--- NOTE | 2023-10-29 13:23 | Infectious Disease Consult ---
Date of Service October 29, 2023 Telehealth Information I performed this visit using a real-time telehealth connection between my location and the patients location ([facility]). After connecting through interactive tele-video, patient was identified by name and date of and/or wristband check.Patient (or authorized healthcare dental detail representative) was informed that this was a telemedicine visit and it was being conducted confidentially over secure lines. My office door was closed and no one else was present in the room with me.Patient (or authorized healthcare dental detail representative) provided consent to proceed with the visit, expressed an understanding of privacy and security of the telemedicine visit, and gave permission to have a hospital dental detail representative in the room in order to assist with the visit and to conduct portions of the visit, as needed. I informed the patient (or authorized healthcare dental detail representative) that I reviewed their record and presented the opportunity for them to ask any questions regarding the visit today. The patient agreed to participate. Assessment & Plan (1) Infection of prosthetic left knee joint: (2) Septic prepatellar bursitis of left knee: (3) Gram-positive cocci bacteremia: (4) Status post incision and drainage: Plan - Given the synovial fluid cultures from 10/27 growing MSSA, I would recommend de-escalating IV vancomycin to IV cefazolin. - Since the procedure is considered incision and drainage with retained hardware, he will require a 6-week course of IV cefazolin in combination with oral rifampin. Oral rifampin to be started after bacteremia clears. After 6 weeks of IV therapy, we will step down cefazolin to oral cefadroxil along with oral rifampin to complete a course of 6 months. Then, he will be on cefadroxil for life. - Thank you for consulting ID. We will continue to follow. History of Present Illness History of Present Illness Mr. Betancur is a 58-year-old man with medical history of HTN, allergic rhinitis, history of bilateral total knee arthroplasty, and is status post left total knee arthroplasty polyethylene change in May 2023 who was admitted to [facility] on 10/28 because of chronic swelling of the left knee. He mentioned that around 5 days prior to presentation, the swelling has progressively got worse with red discoloration of the knee. He did complain of pain in the left knee especially with flexion and which was also progressively getting worse. On presentation to the ED on 10/27, he was found to be tachycardic with blood workup showing leukocytosis of 17.5 (ANC 13.7) and x-ray of the knee showing large joint effusion with extensive anterior soft tissue swelling within the left knee. He was referred to orthopedic clinic where he was assessed and aspiration of synovial fluid was performed with culture sent at that time grew MSSA. He was then admitted on 10/28 for washout of Lt knee and polyethylene change. The ID team was consulted for further recommendations and to help with guiding antibiotics. Allergies Allergy/AdvReac Type Severity Reaction Status Date / Time No Known Allergies Allergy Verified 10/28/23 13:21 Home Medications Medication Instructions Recorded Confirmed Type omeprazole 20 mg tablet,delayed 20 mg PO QAM 07/24/18 10/28/23 History release losartan 100 mg tablet (Cozaar) 100 mg PO QAM 08/19/21 10/28/23 History oxycodone 5 mg tablet 5 - 10 mg (1 - 2 x 5 mg) PO Q6H 05/27/23 10/28/23 Rx PRN pain #30 tabs amlodipine 5 mg tablet 5 mg PO DAILY 10/28/23 10/28/23 History cephalexin 500 mg capsule 500 mg PO Q8H 10/28/23 10/28/23 History loratadine 10 mg tablet (Claritin) 10 mg PO DAILY 10/28/23 10/28/23 History Patient History Medical History Hypertension Alcohol use GERD (gastroesophageal reflux disease) Surgical History History of total bilateral knee replacement B/L TKA (01/22/11): SAB + PNB at [facility] History of arthroscopy of right knee x3 History of arthroscopy of left knee x3 History of hernia surgery Family History Other No family history of adverse response to anesthesia Social History Smoking Status: Current every day smoker Tobacco Type: Cigars Cigarettes Per Day: 3 cigars a day (advised); Second Hand Exposure: No; Do You Dip or Chew Tobacco: No; Tobacco Cessation Education Requested by Patient: No Hx Alcohol Use: Yes Alcohol type: beer Hx Substance Use: No Preferred Language: [place] Communication Ability: Effective Transitional Nurse Required: No Beliefs That Will Affect Care: None Current Living Situation: Spouse and Family Current Living Situation Comment: Lives with and 17yr old daughter Other Information That Helps Us Care for You: No Feels Safe at Home: Yes Safety Concerns: Feels Safe At This Time Assistive Devices: Glasses and Hospital Bed Review of Systems Constitutional: No fatigue, no fever or chills HEENT: no sore throat, no nasal discharge Cardiovascular: no chest pain, or palpitations Respiratory: no shortness of breath, no cough Gastrointestinal: No nausea, vomiting, diarrhea or abdominal pain : No dysuria or hesitancy, no urinary discharge Musculoskeletal/Skin: Minimal Lt knee pain after surgery Neurologic: no dizziness or headache Physical Exam Couldn't be performed as the consult was performed via Telemed. Results & Data Vital Signs (Past 12 Hours) Vital Signs Temp Pulse Pulse Pulse Resp BP BP 10/29/23 12:29 36.6 C 97 H 18 160/100 H 10/29/23 12:00 36.6 C 94 H 18 154/100 H 10/29/23 11:33 36.7 C 96 H 18 163/95 H 10/29/23 11:05 36.9 C 104 H 13 161/86 H 10/29/23 10:55 109 H 13 142/87 H 10/29/23 10:45 106 H 13 150/96 H 10/29/23 10:35 107 H 14 176/91 H 10/29/23 10:26 36.9 C 100 H 18 143/109 H 10/29/23 07:43 91 H 10/29/23 07:42 36.9 C 91 H 18 150/92 H 10/29/23 07:35 37.2 C 88 19 165/82 H 10/29/23 02:50 36.8 C 90 18 153/89 H Pulse Ox O2 Del Method O2 Flow Rate 10/29/23 12:29 96 Nasal Cannula 2 10/29/23 12:00 94 Nasal Cannula 2 10/29/23 11:33 97 Nasal Cannula 2 10/29/23 11:05 98 Nasal Cannula 2 10/29/23 10:55 94 Room Air 10/29/23 10:45 98 Oxymask 9 10/29/23 10:35 98 Oxymask 9 10/29/23 10:26 96 Oxymask 9 10/29/23 07:43 10/29/23 07:42 96 Room Air 10/29/23 07:35 99 Room Air 10/29/23 02:50 96 Room Air Laboratory Results MICROBIOLOGY: 10/27: Synovial fluid culture growing MSSA 10/28: 1 of 4 bottles of blood cultures growing gram-positive cocci 10/29: Synovial fluid culture pending (Gram stain with no organisms and rare PMNs) 10/29: Prepatellar bursa culture pending (Gram stain with moderate gram-positive cocci and many PMNs) Diagnostic Findings Lt knee Xray on 10/27: Large joint effusion with extensive anterior soft tissue swelling within the left knee. No acute fractures.
[2023-10-29] MEDS: ACETAMINOPHEN 500 MG TAB PO SCH ×2 (13:53→21:10)
--- NOTE | 2023-10-29 16:21 | Hospitalist Progress Note ---
Date of Service October 29, 2023 Assessment & Plan (1) Painful total knee replacement, left: (2) Gram-positive cocci bacteremia: Plan: Patient presented with pain in left knee. History of status post left TKA polyethylene bearing change in May, synovial aspiration from 10/27 showed MSSA Blood culture from 10/28 1 out of 2 bottle also growing MSSA Status post left incision and drainage Poly exchange on October 29, 2023 Intra-op cultures; Prepatellar bursa cultures showing moderate gram-positive cocci, many polyp Joint fluid -rare WBCs seen, no organisms seen. Vancomycin switched over to cefazolin as recommended by infectious disease Transthoracic echocardiogram ordered. Repeat blood culture tomorrow morning ordered Rifampicin to be started once bacteremia clears. Patient will need 6 weeks of IV therapy as per ID; stepdown to oral cefadroxil along with oral rifampin to complete 6-month course. Then, cefadroxil for life. I discussed with the patient regarding the blood culture finding and next steps. Answered questions and queries. Chronic conditions; Hypertensioncontinue on losartan and amlodipine GERDcontinue on omeprazole Time spent evaluating patient, direct bedside care, chart review, placing orders, interpretation of diagnostic studies, discussion with consultants, patient, and family members, as well as other required patient management activities is 50 minutes Please note the above document was generated using voice recognition software. It may contain grammatical, syntax or spelling errors. Any formal questions or concerns about the content, text or information contained within the body of thi s dictation should be directly addressed to the provider for clarification Admission and Anticipated Discharge Date Admission Date: October 28, 2023 Subjective Patient was seen in the morning and in the afternoon. In the morning, patient was back from the procedure. He is slightly lethargic. In the afternoon, patient was alert oriented x 3. Not in any distress. Review of Systems Review of Systems: All systems reviewed & are unremarkable except as noted in Subjective Physical Exam Physical Exam: Constitutional: Alert oriented x 3; not in distress. Respiratory: Bilateral vesicular breath sound. Cardiovascular: RRR, no murmur, no edema Vessels: no JVD or carotid bruit Chest: normal inspection of chest Abdomen: normal bowel sounds, soft, nontender, no hepatosplenomegaly Musculoskeletal: Dressing in place on the left knee with drain in place. Skin: no rashes, warm and dry normal turgor Neurologic: PERRL, EOMI, accommodation nl, no face palsy, no dysarthria CN's II- XI intact bilaterally and moves all extremities Psychiatric: A+Ox3, euthymic affect Results & Data Results & Data Vital Signs (Past 12 Hours) Vital Signs Temp Pulse Pulse Pulse Resp BP BP 10/29/23 14:37 36.6 C 95 H 18 147/87 H 10/29/23 13:29 36.7 C 94 H 18 140/87 10/29/23 12:29 36.6 C 97 H 18 160/100 H 10/29/23 12:00 36.6 C 94 H 18 154/100 H 10/29/23 11:33 36.7 C 96 H 18 163/95 H 10/29/23 11:05 36.9 C 104 H 13 161/86 H 10/29/23 10:55 109 H 13 142/87 H 10/29/23 10:45 106 H 13 150/96 H 10/29/23 10:35 107 H 14 176/91 H 10/29/23 10:26 36.9 C 100 H 18 143/109 H 10/29/23 07:43 91 H 10/29/23 07:42 36.9 C 91 H 18 150/92 H 10/29/23 07:35 37.2 C 88 19 165/82 H Pulse Ox O2 Del Method O2 Flow Rate 10/29/23 14:37 95 Room Air 10/29/23 13:29 97 Nasal Cannula 2 10/29/23 12:29 96 Nasal Cannula 2 10/29/23 12:00 94 Nasal Cannula 2 10/29/23 11:33 97 Nasal Cannula 2 10/29/23 11:05 98 Nasal Cannula 2 10/29/23 10:55 94 Room Air 10/29/23 10:45 98 Oxymask 9 10/29/23 10:35 98 Oxymask 9 10/29/23 10:26 96 Oxymask 9 10/29/23 07:43 10/29/23 07:42 96 Room Air 10/29/23 07:35 99 Room Air Laboratory Results Laboratory Results WBC 15.74 K/ul (4.8-10.8) H 10/29/23 04:11 RBC 4.09 M/uL (4.70-6.10) L 10/29/23 04:11 Hgb 13.6 g/dl (14.0-18.0) L 10/29/23 04:11 Hct 39.2 % (42.0-52.0) L 10/29/23 04:11 MCV 95.8 fL (80.0-100.0) 10/29/23 04:11 MCH 33.3 pg (25.0-34.0) 10/29/23 04:11 MCHC 34.7 g/dL (32.0-36.0) 10/29/23 04:11 RDW Std Deviation 49.0 fL (36.4-46.3) H 10/29/23 04:11 RDW Coeff of Zeferino 13.8 % (11.5-14.5) 10/29/23 04:11 Plt Count 218 K/uL (130-400) 10/29/23 04:11 MPV 9.8 fL (9.4-12.4) 10/29/23 04:11 Immature Gran % (Auto) 0.6 % 10/28/23 12:30 Neut % (Auto) 86.8 % 10/28/23 12:30 Lymph % (Auto) 6.6 % 10/28/23 12:30 Gillespie % (Auto) 5.1 % 10/28/23 12:30 Eos % (Auto) 0.5 % 10/28/23 12:30 Baso % (Auto) 0.4 % 10/28/23 12:30 Neut # (Auto) 13.73 K/uL (1.40-6.50) H 10/28/23 12:30 Lymph # (Auto) 1.04 K/uL (1.20-3.40) L 10/28/23 12:30 Gillespie # (Auto) 0.81 K/uL (0.11-0.59) H 10/28/23 12:30 Eos # (Auto) 0.08 K/uL (0.00-0.50) 10/28/23 12:30 Baso # (Auto) 0.06 K/uL (0.00-0.20) 10/28/23 12:30 Immature Gran # (Auto) 0.09 K/uL (0.01-0.20) 10/28/23 12:30 ESR 41 mm/hr (0-20) H 10/28/23 12:30 Sodium 138 mmol/L (136-145) 10/29/23 04:11 Potassium 4.3 mmol/L (3.5-5.1) 10/29/23 04:11 Chloride 107 mmol/L (98-107) 10/29/23 04:11 Carbon Dioxide 24 mmol/L (21-32) 10/29/23 04:11 Anion Gap 7 (3-11) 10/29/23 04:11 BUN 11 mg/dl (6-23) 10/29/23 04:11 Creatinine 0.73 mg/dl (0.6-1.4) 10/29/23 04:11 Est Cr Clr Drug Dosing 109.3 ml/min 10/29/23 04:11 Est GFR ( Amer) 120.2 ml/min 10/29/23 04:11 Est GFR (Non-Af Amer) 103.7 ml/min 10/29/23 04:11 BUN/Creatinine Ratio 15.1 (10-20) 10/29/23 04:11 Glucose 126 mg/dl (70-99(Fasting)) H 10/29/23 04:11 Lactate 1.3 mmol/L (0.4-2.0) 10/28/23 14:31 Calcium 8.3 mg/dl (8.6-10.3) L 10/29/23 04:11 Magnesium 1.9 mg/dl (1.7-2.4) 10/28/23 12:30 C-Reactive Protein 32.07 mg/dl (0-0.5) H 10/29/23 04:11 Procalcitonin 1.69 ng/ml (0-0.5) H 10/29/23 04:10 Staphylococcus sp PCR DETECTED (NotDetected) A 10/28/23 12:30 Staph aureus (PCR) DETECTED (NotDetected) A 10/28/23 12:30 mecA/C & MREJ Resist Gene MRSA Not Detected (NotDetected) 10/28/23 12:30 Bld Cult ID Panel PCR See PCR Comment (NotDetected) 10/28/23 12:30 Impressions Knee X-Ray 10/29/23 10:30 XR knee LT 1 or 2V routine CLINICAL HISTORY: Postoperative evaluation. Infected left knee arthroplasty. COMPARISON: Left knee radiographs October 27, 2023. FINDINGS: Left knee arthroplasty is noted. There is no periprosthetic fracture. There is no periprosthetic lucency. Surgical drains are in place. There are skin ranjith. Left knee joint effusion has significantly decreased in size. The soft tissue swelling is slightly improved. IMPRESSION: Status post incision and drainage. No periprosthetic fractures. No unexpected radiopaque bodies. ACT 112: Negative or not required by law. Electronically signed by: Jaime Cristina M.D. 10/29/2023 10:53 AM
[2023-10-29] MEDS: ceFAZolin 2000MG 2,000 MG/15 ML SYR IV SCH (17:06)
[2023-10-29] MEDS: oxyCODONE HCL IR 5 MG TAB (IMMEDIATE RELEASE) PO PRN (17:15)
[2023-10-29] MEDS: ASPIRIN 81 MG ECTAB PO SCH (21:03)
[2023-10-29] MEDS: DOCUSATE SODIUM 100 MG CAP PO SCH (21:03)
[2023-10-29] MEDS: SENNA 8.6 MG TAB PO SCH (21:04)
[2023-10-30] MEDS: ceFAZolin 2000MG 2,000 MG/15 ML SYR IV SCH ×3 (01:21→16:05)
[2023-10-30 06:02] LABS: Hematocrit (blood only) 37.1 % (42.0-52.0); Hemoglobin 12.9 g/dl (14.0-18.0); Mean Corpuscular Hgb Conc 34.8 g/dL (32.0-36.0); Mean Corpuscular Volume 94.9 fL (80.0-100.0); Mean Platelet Volume 10.1 fL (9.4-12.4); Platelet Count 242 K/uL (130-400); RDW Coefficient of Variation 13.9 % (11.5-14.5); RDW Standard Deviation 48.5 fL (36.4-46.3); Red Blood Count 3.91 M/uL (4.70-6.10); White Blood Count 13.77 K/ul (4.8-10.8)
[2023-10-30] MEDS: ACETAMINOPHEN 500 MG TAB PO SCH ×3 (06:04→22:04)
[2023-10-30] MEDS: oxyCODONE HCL IR 5 MG TAB (IMMEDIATE RELEASE) PO PRN ×4 (06:05→22:00)
[2023-10-30 06:12] LABS: BUN Creatinine Ratio 21.9 (10-20); Calcium 7.9 mg/dl (8.6-10.3); Creatinine Clr Calc Pharmacy 124.7 ml/min; Est GFR (African American) 126.9 ml/min; Est GFR (Non-African American) 109.5 ml/min; Potassium 3.7 mmol/L (3.5-5.1)
--- NOTE | 2023-10-30 08:16 | Orthopedic Progress Note ---
Date of Service October 30, 2023 Assessment & Plan (1) Status post incision and drainage: Plan: POD #1 s/p left knee I&D with poly exchange pt/ot dvt proph with MONALISA/SCD/ASA ID consulted for ABx recommendations as follows: recommend de-escalating IV vancomycin to IV cefazolin. will require a 6-week course of IV cefazolin in combination with oral rifampin. Oral rifampin to be started after bacteremia clears. After 6 weeks of IV therapy, step down cefa zolin to oral cefadroxil along with oral rifampin to complete a course of 6 months. Then, he will be on cefadroxil for life. (2) Gram-positive cocci bacteremia: (3) Septic prepatellar bursitis of left knee: Admission and Anticipated Discharge Date Admission Date: October 28, 2023 Subjective Postop day #1 status post left knee I&D with poly exchange. Denies present fever chills sweats, currently pain is tolerable in the knee. Denies calf pain Review of Systems Constitutional: no fever and no chills Respiratory: no cough and no dyspnea Cardiovascular: no chest pain, no dyspnea and no orthopnea Gastrointestinal: no abdominal pain, no nausea and no vomiting Physical Exam Physical Exam: Vital Signs Temp 36.7 C 10/30/23 04:31 Pulse 83 10/30/23 06:59 Resp 18 10/30/23 04:31 BP 147/80 H 10/30/23 04:31 Pulse Ox 96 10/30/23 04:31 O2 Del Method Room Air 10/30/23 04:31 O2 Flow Rate 2 10/29/23 13:29 Intake & Output 10/29/23 10/30/23 10/30/23 18:59 06:59 18:59 Intake Total 2748.75 / 5267.083 2518.333 / 5267.08 3 Output Total 510 / 1420 910 / 1420 Balance 2238.75 / 3847.083 1608.333 / 3847.08 3 Weight 70.1 kg Intake: IV 1348.75 / 3267.083 1918.333 / 3267.08 3 Lactated Ringe r's 1,000 ml @ 73.75 / 73.75 KVO 15 mls/hr IV .Q24H [facility] Rx#: [id number] Sodium Chlorid e 0.9% 1,000 ml @ 1000 / 2918.333 1918.333 / 2918.33 3 100 mls/hr IV .Q10H [facility] Rx#: [id number] Vancomycin HCl 1,250 mg In 275 / 275 Sodium Chlorid e 0.9% 250 ml @ 200 mls/hr IV Q12H [facility] Rx#: [id number] IV Perioperative 1400 / 1400 Oral 600 / 600 Output: Urine 850 / 850 Estimated Blood Loss 10 / 10 Other 500 / 500 Drain Output 60 / 60 Left Knee Hemo vac #1 60 / 60 Musculoskeletal: Left knee: NVDI, calf SNT, negative tru sign. DP palpable, able to wiggle toes/ankle movement without difficulty. KIRSTIE dressing clean dry and intact. Results & Data Vital Signs (Past 12 Hours) Vital Signs Temp Pulse Pulse Resp BP Pulse Ox O2 Del Method 10/30/23 06:59 83 10/30/23 06:00 88 10/30/23 04:31 36.7 C 81 18 147/80 H 96 Room Air 10/30/23 02:00 16 10/29/23 22:25 88 10/29/23 22:00 36.7 C 85 20 137/81 97 Room Air Laboratory Results Laboratory Results WBC 13.77 K/ul (4.8-10.8) H 10/30/23 05:37 RBC 3.91 M/uL (4.70-6.10) L 10/30/23 05:37 Hgb 12.9 g/dl (14.0-18.0) L 10/30/23 05:37 Hct 37.1 % (42.0-52.0) L 10/30/23 05:37 MCV 94.9 fL (80.0-100.0) 10/30/23 05:37 MCH 33.0 pg (25.0-34.0) 10/30/23 05:37 MCHC 34.8 g/dL (32.0-36.0) 10/30/23 05:37 RDW Std Deviation 48.5 fL (36.4-46.3) H 10/30/23 05:37 RDW Coeff of Zeferino 13.9 % (11.5-14.5) 10/30/23 05:37 Plt Count 242 K/uL (130-400) 10/30/23 05:37 MPV 10.1 fL (9.4-12.4) 10/30/23 05:37 Immature Gran % (Auto) 0.6 % 10/28/23 12:30 Neut % (Auto) 86.8 % 10/28/23 12:30 Lymph % (Auto) 6.6 % 10/28/23 12:30 Reagan % (Auto) 5.1 % 10/28/23 12:30 Eos % (Auto) 0.5 % 10/28/23 12:30 Baso % (Auto) 0.4 % 10/28/23 12:30 Neut # (Auto) 13.73 K/uL (1.40-6.50) H 10/28/23 12:30 Lymph # (Auto) 1.04 K/uL (1.20-3.40) L 10/28/23 12:30 Reagan # (Auto) 0.81 K/uL (0.11-0.59) H 10/28/23 12:30 Eos # (Auto) 0.08 K/uL (0.00-0.50) 10/28/23 12:30 Baso # (Auto) 0.06 K/uL (0.00-0.20) 10/28/23 12:30 Immature Gran # (Auto) 0.09 K/uL (0.01-0.20) 10/28/23 12:30 ESR 41 mm/hr (0-20) H 10/28/23 12:30 Sodium 139 mmol/L (136-145) 10/30/23 05:37 Potassium 3.7 mmol/L (3.5-5.1) 10/30/23 05:37 Chloride 109 mmol/L (98-107) H 10/30/23 05:37 Carbon Dioxide 22 mmol/L (21-32) 10/30/23 05:37 Anion Gap 8 (3-11) 10/30/23 05:37 BUN 14 mg/dl (6-23) 10/30/23 05:37 Creatinine 0.64 mg/dl (0.6-1.4) 10/30/23 05:37 Est Cr Clr Drug Dosing 124.7 ml/min 10/30/23 05:37 Est GFR ( Amer) 126.9 ml/min 10/30/23 05:37 Est GFR (Non-Af Amer) 109.5 ml/min 10/30/23 05:37 BUN/Creatinine Ratio 21.9 (10-20) H 10/30/23 05:37 Glucose 132 mg/dl (70-99(Fasting)) H 10/30/23 05:37 Lactate 1.3 mmol/L (0.4-2.0) 10/28/23 14:31 Calcium 7.9 mg/dl (8.6-10.3) L 10/30/23 05:37 Magnesium 1.9 mg/dl (1.7-2.4) 10/28/23 12:30 C-Reactive Protein 32.07 mg/dl (0-0.5) H 10/29/23 04:11 Procalcitonin 1.69 ng/ml (0-0.5) H 10/29/23 04:10 Random Vancomycin 3.6 mcg/ml (10-20) L 10/30/23 05:37 Staphylococcus sp PCR DETECTED (NotDetected) A 10/28/23 12:30 Staph aureus (PCR) DETECTED (NotDetected) A 10/28/23 12:30 mecA/C & MREJ Resist Gene MRSA Not Detected (NotDetected) 10/28/23 12:30 Bld Cult ID Panel PCR See PCR Comment (NotDetected) 10/28/23 12:30 Impressions Knee X-Ray 10/29/23 10:30 XR knee LT 1 or 2V routine CLINICAL HISTORY: Postoperative evaluation. Infected left knee arthroplasty. COMPARISON: Left knee radiographs October 27, 2023. FINDINGS: Left knee arthroplasty is noted. There is no periprosthetic fracture. There is no periprosthetic lucency. Surgical drains are in place. There are skin ranjith. Left knee joint effusion has significantly decreased in size. The soft tissue swelling is slightly improved. IMPRESSION: Status post incision and drainage. No periprosthetic fractures. No unexpected radiopaque bodies. ACT 112: Negative or not required by law. Electronically signed by: Jaime Cristina M.D. 10/29/2023 10:53 AM
[2023-10-30] MEDS: MULTIVITAMIN TAB PO SCH (09:22)
[2023-10-30] MEDS: ASPIRIN 81 MG ECTAB PO SCH ×2 (09:22→22:01)
[2023-10-30] MEDS: PANTOprazole 40 MG TAB PO SCH (09:22)
[2023-10-30] MEDS: LORATADINE 10 MG TAB PO SCH (09:22)
[2023-10-30] MEDS: amLODIPine BESYLATE 5 MG TAB PO SCH (09:22)
[2023-10-30] MEDS: NICOTINE 14 MG/24 HR PATCH TD SCH (09:22)
[2023-10-30] MEDS: DOCUSATE SODIUM 100 MG CAP PO SCH ×2 (09:22→22:01)
--- NOTE | 2023-10-30 12:24 | Hospitalist Progress Note ---
Date of Service October 30, 2023 Assessment & Plan (1) Painful total knee replacement, left: (2) Gram-positive cocci bacteremia: Plan: Patient presented with pain in left knee. History of status post left TKA polyethylene bearing change in May, synovial aspiration from 10/27 showed MSSA Blood culture from 10/28 1 out of 2 bottle also growing MSSA Status post left incision and drainage Poly exchange on October 29, 2023 Intra-op cultures; Prepatellar bursa cultures showing Staphylococcus species Joint fluid -Staphylococcus species Transthoracic echo showed EF of 55 to 60%; no significant valvular abnormalities within the limits of imaging modality. On IV cefazolin as recommended by infectious disease Repeat blood culture pending Rifampicin to be started once bacteremia clears. Patient will need 6 weeks of IV therapy as per ID; stepdown to oral cefadroxil along with oral rifampin to complete 6-month course. Then, cefadroxil for life. Patient has follow-up with infectious disease in end of November. Discussed with patient regarding plan of care. Answer questions/queries Chronic conditions; Hypertensioncontinue on losartan and amlodipine GERDcontinue on omeprazole Please note the above document was generated using voice recognition software. It may contain grammatical, syntax or spelling errors. Any formal questions or concerns about the content, text or information contained within the body of this dictation should be directly addressed to the provider for clarification Admission and Anticipated Discharge Date Admission Date: October 28, 2023 Subjective Patient seen and examined at bedside. He denies fever, chills, headache, dizziness, chest pain or shortness of breath. Review of Systems Review of Systems: All systems reviewed & are unremarkable except as noted in Subjective Physical Exam Physical Exam: Constitutional: Alert oriented x 3; not in distress. Respiratory: Bilateral vesicular breath sound. Cardiovascular: RRR, no murmur, no edema Vessels: no JVD or carotid bruit Chest: normal inspection of chest Abdomen: normal bowel sounds, soft, nontender, no hepatosplenomegaly Musculoskeletal: Dressing in place on the left knee with drain in place. Skin: no rashes, warm and dry normal turgor Neurologic: PERRL, EOMI, accommodation nl, no face palsy, no dysarthria CN's II- XI intact bilaterally and moves all extremities Psychiatric: A+Ox3, euthymic affect Results & Data Results & Data Vital Signs (Past 12 Hours) Vital Signs Temp Pulse Pulse Resp BP BP Pulse Ox 10/30/23 11:27 36.8 C 86 19 157/84 H 99 10/30/23 08:51 36.6 C 92 H 18 153/92 H 98 10/30/23 07:40 10/30/23 06:59 83 10/30/23 06:00 88 10/30/23 04:31 36.7 C 81 18 147/80 H 96 10/30/23 02:00 16 O2 Del Method 10/30/23 11:27 Room Air 10/30/23 08:51 Room Air 10/30/23 07:40 Room Air 10/30/23 06:59 10/30/23 06:00 10/30/23 04:31 Room Air 10/30/23 02:00 Laboratory Results Laboratory Results WBC 13.77 K/ul (4.8-10.8) H 10/30/23 05:37 RBC 3.91 M/uL (4.70-6.10) L 10/30/23 05:37 Hgb 12.9 g/dl (14.0-18.0) L 10/30/23 05:37 Hct 37.1 % (42.0-52.0) L 10/30/23 05:37 MCV 94.9 fL (80.0-100.0) 10/30/23 05:37 MCH 33.0 pg (25.0-34.0) 10/30/23 05:37 MCHC 34.8 g/dL (32.0-36.0) 10/30/23 05:37 RDW Std Deviation 48.5 fL (36.4-46.3) H 10/30/23 05:37 RDW Coeff of Zeferino 13.9 % (11.5-14.5) 10/30/23 05:37 Plt Count 242 K/uL (130-400) 10/30/23 05:37 MPV 10.1 fL (9.4-12.4) 10/30/23 05:37 Immature Gran % (Auto) 0.6 % 10/28/23 12:30 Neut % (Auto) 86.8 % 10/28/23 12:30 Lymph % (Auto) 6.6 % 10/28/23 12:30 [place]ville % (Auto) 5.1 % 10/28/23 12:30 Eos % (Auto) 0.5 % 10/28/23 12:30 Baso % (Auto) 0.4 % 10/28/23 12:30 Neut # (Auto) 13.73 K/uL (1.40-6.50) H 10/28/23 12:30 Lymph # (Auto) 1.04 K/uL (1.20-3.40) L 10/28/23 12:30 [place] # (Auto) 0.81 K/uL (0.11-0.59) H 10/28/23 12:30 Eos # (Auto) 0.08 K/uL (0.00-0.50) 10/28/23 12:30 Baso # (Auto) 0.06 K/uL (0.00-0.20) 10/28/23 12:30 Immature Gran # (Auto) 0.09 K/uL (0.01-0.20) 10/28/23 12:30 ESR 41 mm/hr (0-20) H 10/28/23 12:30 Sodium 139 mmol/L (136-145) 10/30/23 05:37 Potassium 3.7 mmol/L (3.5-5.1) 10/30/23 05:37 Chloride 109 mmol/L (98-107) H 10/30/23 05:37 Carbon Dioxide 22 mmol/L (21-32) 10/30/23 05:37 Anion Gap 8 (3-11) 10/30/23 05:37 BUN 14 mg/dl (6-23) 10/30/23 05:37 Creatinine 0.64 mg/dl (0.6-1.4) 10/30/23 05:37 Est Cr Clr Drug Dosing 124.7 ml/min 10/30/23 05:37 Est GFR ( Amer) 126.9 ml/min 10/30/23 05:37 Est GFR (Non-Af Amer) 109.5 ml/min 10/30/23 05:37 BUN/Creatinine Ratio 21.9 (10-20) H 10/30/23 05:37 Glucose 132 mg/dl (70-99(Fasting)) H 10/30/23 05:37 Lactate 1.3 mmol/L (0.4-2.0) 10/28/23 14:31 Calcium 7.9 mg/dl (8.6-10.3) L 10/30/23 05:37 Magnesium 1.9 mg/dl (1.7-2.4) 10/28/23 12:30 C-Reactive Protein 32.07 mg/dl (0-0.5) H 10/29/23 04:11 Procalcitonin 1.69 ng/ml (0-0.5) H 10/29/23 04:10 Random Vancomycin 3.6 mcg/ml (10-20) L 10/30/23 05:37 Staphylococcus sp PCR DETECTED (NotDetected) A 10/28/23 12:30 Staph aureus (PCR) DETECTED (NotDetected) A 10/28/23 12:30 mecA/C & MREJ Resist Gene MRSA Not Detected (NotDetected) 10/28/23 12:30 Bld Cult ID Panel PCR See PCR Comment (NotDetected) 10/28/23 12:30 Impressions Knee X-Ray 10/29/23 10:30 XR knee LT 1 or 2V routine CLINICAL HISTORY: Postoperative evaluation. Infected left knee arthroplasty. COMPARISON: Left knee radiographs October 27, 2023. FINDINGS: Left knee arthroplasty is noted. There is no periprosthetic fracture. There is no periprosthetic lucency. Surgical drains are in place. There are skin ranjith. Left knee joint effusion has significantly decreased in size. The soft tissue swelling is slightly improved. IMPRESSION: Status post incision and drainage. No periprosthetic fractures. No unexpected radiopaque bodies. ACT 112: Negative or not required by law. Electronically signed by: Jaime Cristina M.D. 10/29/2023 10:53 AM
[2023-10-30] MEDS: SENNA 8.6 MG TAB PO SCH (22:01)
[2023-10-31] MEDS: ceFAZolin 2000MG 2,000 MG/15 ML SYR IV SCH ×3 (00:36→15:23)
[2023-10-31] MEDS: ACETAMINOPHEN 500 MG TAB PO SCH ×3 (06:24→22:34)
[2023-10-31 07:06] LABS: Basophils # (auto) 0.06 K/uL (0.00-0.20); Basophils % (auto) 0.6 %; Eosinophils # (auto) 0.26 K/uL (0.00-0.50); Eosinophils % (auto) 2.4 %; Hematocrit (blood only) 35.9 % (42.0-52.0); Hemoglobin 12.2 g/dl (14.0-18.0); Immature Granulocytes # (auto) 0.06 K/uL (0.01-0.20); Immature Granulocytes % (auto) 0.6 %; Lymphocytes # (auto) 1.54 K/uL (1.20-3.40); Lymphocytes % (auto) 14.4 %; Mean Corpuscular Hemoglobin 32.4 pg (25.0-34.0); Mean Corpuscular Volume 95.2 fL (80.0-100.0); Mean Platelet Volume 10.4 fL (9.4-12.4); Monocytes # (auto) 1.15 K/uL (0.11-0.59); Monocytes % (auto) 10.8 %; Neutrophils # (auto) 7.62 K/uL (1.40-6.50); Neutrophils % (auto) 71.2 %; Platelet Count 244 K/uL (130-400); RDW Coefficient of Variation 13.7 % (11.5-14.5); RDW Standard Deviation 48.1 fL (36.4-46.3); Red Blood Count 3.77 M/uL (4.70-6.10); White Blood Count 10.69 K/ul (4.8-10.8)
[2023-10-31 07:26] LABS: Albumin Level 3.2 gm/dl (3.4-5.0); BUN Creatinine Ratio 15.2 (10-20); Bilirubin,Total 0.4 mg/dl (0.2-1.0); Calcium 8.3 mg/dl (8.6-10.3); Creatinine Clr Calc Pharmacy 120.9 ml/min; Est GFR (African American) 125.3 ml/min; Est GFR (Non-African American) 108.1 ml/min; Globulin 3.1 gm/dl (2.5-4.0); Potassium 3.7 mmol/L (3.5-5.1); Total Protein 6.3 gm/dl (6.0-8.3)
[2023-10-31] MEDS: ASPIRIN 81 MG ECTAB PO SCH ×2 (08:27→20:46)
[2023-10-31] MEDS: MULTIVITAMIN TAB PO SCH (08:28)
[2023-10-31] MEDS: LORATADINE 10 MG TAB PO SCH (08:28)
[2023-10-31] MEDS: DOCUSATE SODIUM 100 MG CAP PO SCH ×2 (08:28→20:47)
[2023-10-31] MEDS: amLODIPine BESYLATE 5 MG TAB PO SCH (08:28)
[2023-10-31] MEDS: PANTOprazole 40 MG TAB PO SCH (08:28)
[2023-10-31] MEDS: NICOTINE 14 MG/24 HR PATCH TD SCH (08:29)
[2023-10-31] MEDS: oxyCODONE HCL IR 5 MG TAB (IMMEDIATE RELEASE) PO PRN ×3 (08:30→22:34)
--- NOTE | 2023-10-31 10:19 | Orthopedic Progress Note ---
Date of Service October 31, 2023 Assessment & Plan (1) Status post incision and drainage: Plan: POD #2 s/p left knee I&D with poly exchange PT/OT protocols. Weightbearing as tolerated. DVT prophylaxis-aspirin p.o. twice daily, SCDs, MONALISA sexton Pain management as written. ID consulted for ABx recommendations as follows: recommend de-escalating IV vancomycin to IV cefazolin. will require a 6-week course of IV cefazolin in combination with oral rifampin. Oral rifampin to be started after bacteremia clears. After 6 weeks of IV therapy, step down cefazolin to oral cefadroxil along with oral rifampin to complete a course of 6 months. Then, he will be on cefadroxil for life. Patient had positive blood cultures early in his stay and repeat cultures have been drawn and are only 24 hours at this time. They will be rechecked tomorrow and if he remains clear we will arrange PICC line placement. In discussion with the hospitalist team, the patient may be here into the early week depending on ability of arranging home IV antibiotics and getting a PICC line placed. (2) Gram-positive cocci bacteremia: (3) Septic prepatellar bursitis of left knee: Admission and Anticipated Discharge Date Admission Date: October 28, 2023 Subjective Postop day 2 Patient walking in the room coming back from the bathroom using his walker. Patient states that he has been able to walk around the hallways today without much in the way of difficulty. He is still having some moderate pain off and on. No other complaints today. Patient also being seen by hospitalist service discussing the coming addition of his PICC line and awaiting on his second blood culture set. Physical Exam Physical Exam: Arnol wrap and cotton roll removed. Hemovac drain discontinued. Patient has much less swelling and minimal to no erythema noted around the knee itself. He still does have some residual swelling consistent with surgery. Felicia dressing is intact and dry and functioning. Calves are soft nontender. Neurovascular intact. Toes are mobile. Results & Data Vital Signs (Past 12 Hours) Vital Signs Temp Pulse Pulse Resp BP Pulse Ox O2 Del Method 10/31/23 07:35 36.7 C 67 16 135/80 98 Room Air 10/31/23 07:12 80 10/31/23 03:00 36.7 C 101 H 20 116/77 97 Nasal Cannula O2 Flow Rate 10/31/23 07:35 10/31/23 07:12 10/31/23 03:00 5 Laboratory Results Laboratory Results WBC 10.69 K/ul (4.8-10.8) 10/31/23 06:11 RBC 3.77 M/uL (4.70-6.10) L 10/31/23 06:11 Hgb 12.2 g/dl (14.0-18.0) L 10/31/23 06:11 Hct 35.9 % (42.0-52.0) L 10/31/23 06:11 MCV 95.2 fL (80.0-100.0) 10/31/23 06:11 MCH 32.4 pg (25.0-34.0) 10/31/23 06:11 MCHC 34.0 g/dL (32.0-36.0) 10/31/23 06:11 RDW Std Deviation 48.1 fL (36.4-46.3) H 10/31/23 06:11 RDW Coeff of Zeferino 13.7 % (11.5-14.5) 10/31/23 06:11 Plt Count 244 K/uL (130-400) 10/31/23 06:11 MPV 10.4 fL (9.4-12.4) 10/31/23 06:11 Immature Gran % (Auto) 0.6 % 10/31/23 06:11 Neut % (Auto) 71.2 % 10/31/23 06:11 Lymph % (Auto) 14.4 % 10/31/23 06:11 [place]edar % (Auto) 10.8 % 10/31/23 06:11 Eos % (Auto) 2.4 % 10/31/23 06:11 Baso % (Auto) 0.6 % 10/31/23 06:11 Neut # (Auto) 7.62 K/uL (1.40-6.50) H 10/31/23 06:11 Lymph # (Auto) 1.54 K/uL (1.20-3.40) 10/31/23 06:11 [place]edar # (Auto) 1.15 K/uL (0.11-0.59) H 10/31/23 06:11 Eos # (Auto) 0.26 K/uL (0.00-0.50) 10/31/23 06:11 Baso # (Auto) 0.06 K/uL (0.00-0.20) 10/31/23 06:11 Immature Gran # (Auto) 0.06 K/uL (0.01-0.20) 10/31/23 06:11 ESR 41 mm/hr (0-20) H 10/28/23 12:30 Sodium 138 mmol/L (136-145) 10/31/23 06:11 Potassium 3.7 mmol/L (3.5-5.1) 10/31/23 06:11 Chloride 104 mmol/L (98-107) 10/31/23 06:11 Carbon Dioxide 28 mmol/L (21-32) 10/31/23 06:11 Anion Gap 6 (3-11) 10/31/23 06:11 BUN 10 mg/dl (6-23) 10/31/23 06:11 Creatinine 0.66 mg/dl (0.6-1.4) 10/31/23 06:11 Est Cr Clr Drug Dosing 120.9 ml/min 10/31/23 06:11 Est GFR ( Amer) 125.3 ml/min 10/31/23 06:11 Est GFR (Non-Af Amer) 108.1 ml/min 10/31/23 06:11 BUN/Creatinine Ratio 15.2 (10-20) 10/31/23 06:11 Glucose 102 mg/dl (70-99(Fasting)) H 10/31/23 06:11 Lactate 1.3 mmol/L (0.4-2.0) 10/28/23 14:31 Calcium 8.3 mg/dl (8.6-10.3) L 10/31/23 06:11 Magnesium 1.9 mg/dl (1.7-2.4) 10/28/23 12:30 Total Bilirubin 0.4 mg/dl (0.2-1.0) 10/31/23 06:11 AST 28 U/L (13-39) 10/31/23 06:11 ALT 22 U/L (7-52) 10/31/23 06:11 Alkaline Phosphatase 63 U/L (34-104) 10/31/23 06:11 C-Reactive Protein 32.07 mg/dl (0-0.5) H 10/29/23 04:11 Total Protein 6.3 gm/dl (6.0-8.3) 10/31/23 06:11 Albumin 3.2 gm/dl (3.4-5.0) L 10/31/23 06:11 Globulin 3.1 gm/dl (2.5-4.0) 10/31/23 06:11 Albumin/Globulin Ratio 1.0 (0.9-2) 10/31/23 06:11 Procalcitonin 1.69 ng/ml (0-0.5) H 10/29/23 04:10 Random Vancomycin 3.6 mcg/ml (10-20) L 10/30/23 05:37 Staphylococcus sp PCR DETECTED (NotDetected) A 10/28/23 12:30 Staph aureus (PCR) DETECTED (NotDetected) A 10/28/23 12:30 mecA/C & MREJ Resist Gene MRSA Not Detected (NotDetected) 10/28/23 12:30 Bld Cult ID Panel PCR See PCR Comment (NotDetected) 10/28/23 12:30
[2023-10-31] MEDS: rifAMPin 300 MG CAPSULE PO SCH ×2 (13:01→20:47)
--- NOTE | 2023-10-31 13:29 | Hospitalist Progress Note ---
Date of Service October 31, 2023 Assessment & Plan (1) Painful total knee replacement, left: (2) Gram-positive cocci bacteremia: Plan: Patient presented with pain in left knee. History of status post left TKA polyethylene bearing change in May, synovial aspiration from 10/27 showed MSSA Blood culture from 10/28 1 out of 2 bottle also growing MSSA Status post left incision and drainage Poly exchange on October 29, 2023 Intra-op cultures; Prepatellar bursa cultures showing Staphylococcus species Joint fluid -Staphylococcus species Transthoracic echo showed EF of 55 to 60%; no significant valvular abnormalities within the limits of imaging modality. On IV cefazolin as recommended by infectious disease. Also started on rifampin as per ID recommendation. The dosing was discussed with Dr. Mattson. He recommended 300 mg twice daily. Discussed with pharmacy regarding interaction. Rifampicin has interaction with amlodipine, losartan and omeprazole. Pharmacy recommended close blood pressure monitoring after discharge as rifampin decrease s efficacy of amlodipine and losartan. Omeprazole to be changed to Protonix. Repeat blood cultureno growth in 24 hours. Patient will need 6 weeks of IV therapy as per ID; stepdown to oral cefadroxil along with oral rifampin to complete 6-month course. Then, cefadroxil for life. Patient has follow-up with infectious disease in end of November. Discussed with patient regarding plan of care. Answer questions/queries Chronic conditions; Hypertensioncontinue on losartan and amlodipine GERDcontinue on Protonix Time spent evaluating patient, direct bedside care, chart review, placing orders, interpretation of diagnostic studies, discussion with consultants, patient, and family members, as well as other required patient management activities is 60 minutes Please note the above document was generated using voice recognition software. It may contain grammatical, syntax or spelling errors. Any formal questions or concerns about the content, text or information contained within the body of this dictation should be directly addressed to the provider for clarification Admission and Anticipated Discharge Date Admission Date: October 28, 2023 Subjective Patient seen and examined at bedside. He is comfortable lying on the bed; not in distress. Review of Systems Review of Systems: All systems reviewed & are unremarkable except as noted in Subjective Physical Exam Physical Exam: Constitutional: Alert oriented x 3; not in distress. Respiratory: Bilateral vesicular breath sound. Cardiovascular: RRR, no murmur, no edema Vessels: no JVD or carotid bruit Chest: normal inspection of chest Abdomen: normal bowel sounds, soft, nontender, no hepatosplenomegaly Musculoskeletal: Dressing in place in left knee. Skin: no rashes, warm and dry normal turgor Neurologic: PERRL, EOMI, accommodation nl, no face palsy, no dysarthria CN's II- XI intact bilaterally and moves all extremities Psychiatric: A+Ox3, euthymic affect Results & Data Results & Data Vital Signs (Past 12 Hours) Vital Signs Temp Pulse Pulse Resp BP Pulse Ox O2 Del Method 10/31/23 12:04 36.8 C 83 16 147/82 H 98 Room Air 10/31/23 07:35 36.7 C 67 16 135/80 98 Room Air 10/31/23 07:12 80 10/31/23 03:00 36.7 C 101 H 20 116/77 97 Nasal Cannula O2 Flow Rate 10/31/23 12:04 10/31/23 07:35 10/31/23 07:12 10/31/23 03:00 5 Laboratory Results Laboratory Results WBC 10.69 K/ul (4.8-10.8) 10/31/23 06:11 RBC 3.77 M/uL (4.70-6.10) L 10/31/23 06:11 Hgb 12.2 g/dl (14.0-18.0) L 10/31/23 06:11 Hct 35.9 % (42.0-52.0) L 10/31/23 06:11 MCV 95.2 fL (80.0-100.0) 10/31/23 06:11 MCH 32.4 pg (25.0-34.0) 10/31/23 06:11 MCHC 34.0 g/dL (32.0-36.0) 10/31/23 06:11 RDW Std Deviation 48.1 fL (36.4-46.3) H 10/31/23 06:11 RDW Coeff of Zeferino 13.7 % (11.5-14.5) 10/31/23 06:11 Plt Count 244 K/uL (130-400) 10/31/23 06:11 MPV 10.4 fL (9.4-12.4) 10/31/23 06:11 Immature Gran % (Auto) 0.6 % 10/31/23 06:11 Neut % (Auto) 71.2 % 10/31/23 06:11 Lymph % (Auto) 14.4 % 10/31/23 06:11 [place] % (Auto) 10.8 % 10/31/23 06:11 Eos % (Auto) 2.4 % 10/31/23 06:11 Baso % (Auto) 0.6 % 10/31/23 06:11 Neut # (Auto) 7.62 K/uL (1.40-6.50) H 10/31/23 06:11 Lymph # (Auto) 1.54 K/uL (1.20-3.40) 10/31/23 06:11 Phillips # (Auto) 1.15 K/uL (0.11-0.59) H 10/31/23 06:11 Eos # (Auto) 0.26 K/uL (0.00-0.50) 10/31/23 06:11 Baso # (Auto) 0.06 K/uL (0.00-0.20) 10/31/23 06:11 Immature Gran # (Auto) 0.06 K/uL (0.01-0.20) 10/31/23 06:11 ESR 41 mm/hr (0-20) H 10/28/23 12:30 Sodium 138 mmol/L (136-145) 10/31/23 06:11 Potassium 3.7 mmol/L (3.5-5.1) 10/31/23 06:11 Chloride 104 mmol/L (98-107) 10/31/23 06:11 Carbon Dioxide 28 mmol/L (21-32) 10/31/23 06:11 Anion Gap 6 (3-11) 10/31/23 06:11 BUN 10 mg/dl (6-23) 10/31/23 06:11 Creatinine 0.66 mg/dl (0.6-1.4) 10/31/23 06:11 Est Cr Clr Drug Dosing 120.9 ml/min 10/31/23 06:11 Est GFR ( Amer) 125.3 ml/min 10/31/23 06:11 Est GFR (Non-Af Amer) 108.1 ml/min 10/31/23 06:11 BUN/Creatinine Ratio 15.2 (10-20) 10/31/23 06:11 Glucose 102 mg/dl (70-99(Fasting)) H 10/31/23 06:11 Lactate 1.3 mmol/L (0.4-2.0) 10/28/23 14:31 Calcium 8.3 mg/dl (8.6-10.3) L 10/31/23 06:11 Magnesium 1.9 mg/dl (1.7-2.4) 10/28/23 12:30 Total Bilirubin 0.4 mg/dl (0.2-1.0) 10/31/23 06:11 AST 28 U/L (13-39) 10/31/23 06:11 ALT 22 U/L (7-52) 10/31/23 06:11 Alkaline Phosphatase 63 U/L (34-104) 10/31/23 06:11 C-Reactive Protein 32.07 mg/dl (0-0.5) H 10/29/23 04:11 Total Protein 6.3 gm/dl (6.0-8.3) 10/31/23 06:11 Albumin 3.2 gm/dl (3.4-5.0) L 10/31/23 06:11 Globulin 3.1 gm/dl (2.5-4.0) 10/31/23 06:11 Albumin/Globulin Ratio 1.0 (0.9-2) 10/31/23 06:11 Procalcitonin 1.69 ng/ml (0-0.5) H 10/29/23 04:10 Random Vancomycin 3.6 mcg/ml (10-20) L 10/30/23 05:37 Staphylococcus sp PCR DETECTED (NotDetected) A 10/28/23 12:30 Staph aureus (PCR) DETECTED (NotDetected) A 10/28/23 12:30 mecA/C & MREJ Resist Gene MRSA Not Detected (NotDetected) 10/28/23 12:30 Bld Cult ID Panel PCR See PCR Comment (NotDetected) 10/28/23 12:30 Impressions Knee X-Ray 10/29/23 10:30 XR knee LT 1 or 2V routine CLINICAL HISTORY: Postoperative evaluation. Infected left knee arthroplasty. COMPARISON: Left knee radiographs October 27, 2023. FINDINGS: Left knee arthroplasty is noted. There is no periprosthetic fracture. There is no periprosthetic lucency. Surgical drains are in place. There are skin ranjith. Left knee joint effusion has significantly decreased in size. The soft tissue swelling is slightly improved. IMPRESSION: Status post incision and drainage. No periprosthetic fractures. No unexpected radiopaque bodies. ACT 112: Negative or not required by law. Electronically signed by: Jaime Cristina M.D. 10/29/2023 10:53 AM
[2023-10-31] MEDS: SENNA 8.6 MG TAB PO SCH (20:47)
[2023-11-01] MEDS: ceFAZolin 2000MG 2,000 MG/15 ML SYR IV SCH ×3 (00:26→15:39)
[2023-11-01] MEDS: ACETAMINOPHEN 500 MG TAB PO SCH ×2 (05:53→13:32)
[2023-11-01 06:57] LABS: Est GFR (African American) 130.3 ml/min; Est GFR (Non-African American) 112.4 ml/min
[2023-11-01] MEDS: NICOTINE 14 MG/24 HR PATCH TD SCH (07:27)
[2023-11-01] MEDS: amLODIPine BESYLATE 5 MG TAB PO SCH (08:55)
[2023-11-01] MEDS: rifAMPin 300 MG CAPSULE PO SCH (08:55)
[2023-11-01] MEDS: MULTIVITAMIN TAB PO SCH (08:55)
[2023-11-01] MEDS: LORATADINE 10 MG TAB PO SCH (08:55)
[2023-11-01] MEDS: ASPIRIN 81 MG ECTAB PO SCH (08:56)
[2023-11-01] MEDS: DOCUSATE SODIUM 100 MG CAP PO SCH (08:56)
[2023-11-01] MEDS: PANTOprazole 40 MG TAB PO SCH (08:56)
--- NOTE | 2023-11-01 09:35 | Orthopedic Progress Note ---
Date of Service November 01, 2023 Assessment & Plan (1) Infection of prosthetic left knee joint: Plan: 58 yo male stable POD #3 s/p left TKA I&D, poly change, MSSA on culture 1. Med management- pt awaiting blood culture results then PICC line 2. DVT prophylaxis- ASA, SCDs 3. PT/OT 4. D/C planning- home w/ HH and extended IV abx, d/c per medicine Admission and Anticipated Discharge Date Admission Date: October 28, 2023 Subjective Pt resting in bed, pain controlled, denies complaints, "ready to get out of [facility]" Physical Exam Physical Exam: KIRSTIE dressing in place, clean and dry, calf soft, nontender, toes mobile, NVI Results & Data Vital Signs (Past 12 Hours) Vital Signs Temp Pulse Pulse Resp BP Pulse Ox O2 Del Method 11/01/23 07:52 36.6 C 76 13 161/89 H 98 Room Air 11/01/23 07:26 Room Air 11/01/23 05:59 73 11/01/23 03:53 36.6 C 85 18 147/72 H 97 Room Air 11/01/23 01:04 37.2 C 10/31/23 23:12 37.7 C H 81 18 148/84 H 97 Room Air 10/31/23 22:19 87 Laboratory Results 11/01/23 Range/Units 06:09 Creatinine 0.60 (0.6-1.4) mg/dl Est Cr Clr Drug Dosing 133.0 ml/min Est GFR ( Amer) 130.3 ml/min Est GFR (Non-Af Amer) 112.4 ml/min Microbiology 10/30/23 05:43 Aerobic Blood Culture - Preliminary Blood No growth in Aerobic bottle after 48 hours. Anaerobic Blood Culture - Preliminary No growth in Anaerobic bottle after 48 hours. 10/30/23 05:37 Aerobic Blood Culture - Preliminary Blood No growth in Aerobic bottle after 48 hours. Anaerobic Blood Culture - Preliminary No growth in Anaerobic bottle after 48 hours. 10/29/23 Unknown Gram Stain - Final Joint Fluid,Knee Aerobic and Anaerobic Culture - Preliminary Staphylococcus aureus 10/28/23 12:42 Aerobic Blood Culture - Preliminary Blood No growth in Aerobic bottle after 48 hours. Anaerobic Blood Culture - Preliminary Staphylococcus aureus 10/29/23 Unknown Gram Stain - Final Knee,Left Aerobic and Anaerobic Culture - Preliminary Staphylococcus aureus 10/28/23 12:30 Aerobic Blood Culture - Preliminary Blood No growth in Aerobic bottle after 48 hours. Anaerobic Blood Culture - Preliminary Staphylococcus aureus
[2023-11-01] MEDS: oxyCODONE HCL IR 5 MG TAB (IMMEDIATE RELEASE) PO PRN (10:10)
--- NOTE | 2023-11-01 16:20 | Discharge Summary ---
Date of Service November 01, 2023 Admission HPI Per Admitting Provider 58 years old male with past medical history of hypertension, allergic rhinitis, bilateral knee joint replacement, Left knee spacer with placement in May 2023, tobacco use presented to the ER after received a call from orthopedic office due to left knee infection. Patient was in the ER yesterday for left knee pain and swelling that started last Friday. He He was discharged from the ER with instruction to go directly to the orthopedic clinic for further evaluation. He had the left knee joint aspirated done yesterday by orthopedic. He received a call today that the fluid grew staph species. Patient said he has been having left knee pain since Friday that gradually worsening in intensity. He said pain is worse with walking or bending of the left knee. He grades the pain 10 out of 10 in intensity with walking or bending. He also has been having chills and fever. stated temperature was 102 yesterday when he came to the ER. 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 Denies any chest pain, palpitation, dizziness, shortness of breath. Admission Exam Per Admitting Provider General- No acute distress Head- atraumatic Eyes- PERRL, EOMI, ENT- oropharynx clear Neck- supple, no JVD Lungs- clear to auscultation Heart- regular rhythm; no murmur Abdomen- normal bowel sounds, soft, nontender Extremities- Left knee swelling, tender, warm with mild erythema Neuro- alert, oriented x 3; PERRL, EOMI; no facial palsy; no dysarthria Skin- warm & dry Principal Diagnosis MSSA bacteremia Discharge Exam Constitutional: Alert oriented x 3; not in distress. Respiratory: Bilateral vesicular breath sound. Cardiovascular: RRR, no murmur, no edema Vessels: no JVD or carotid bruit Chest: normal inspection of chest Abdomen: normal bowel sounds, soft, nontender, no hepatosplenomegaly Musculoskeletal: Dressing in place in left knee. Skin: no rashes, warm and dry normal turgor Neurologic: PERRL, EOMI, accommodation nl, no face palsy, no dysarthria CN's II- XI intact bilaterally and moves all extremities Psychiatric: A+Ox3, euthymic affect Discharge Data Allergies Allergy/AdvReac Type Severity Reaction Status Date / Time No Known Allergies Allergy Verified 10/28/23 13:21 Consultations 10/28/23 13:33 ED Decision to Admit Stat 10/28/23 15:14 Consult Orthopedic Surgery Routine 10/28/23 15:19 Consult Infectious Diseases Routine Procedures Performed Operation Date: 10/29/23 10:40 Actual Procedures p Left Incision and Drainage Poly Exchange(Left) - Antony Brady DO Hospital Course (1) Painful total knee replacement, left: (2) Gram-positive cocci bacteremia: Patient presented with pain in left knee. History of status post left TKA polyethylene bearing change in May, synovial aspiration from 10/27 showed MSSA Blood culture from 10/28 1 out of 2 bottle also grew MSSA Status post left incision and drainage Poly exchange on October 29, 2023 Intra-op cultures; Prepatellar bursa cultures showing Staphylococcus species Joint fluid -Staphylococcus species Transthoracic echo showed EF of 55 to 60%; no significant valvular abnormalities within the limits of imaging modality. Repeat blood culture 10/30/2023no growth in 48 hours. Patient discharged home on IV cefazolin as recommended by infectious disease along with rifampin. Patient to follow-up with infectious disease and PCP. Patient to follow-up with orthopedic as outpatient as well. Weekly labs to be sent to PCP. Please note the above document was generated using voice recognition software. It may contain grammatical, syntax or spelling errors. Any formal questions or concerns about the content, text or information contained within the body of this dictation should be directly addressed to the provider for clarification Total Time Total Time Spent Total Time Spent (In Minutes): 35 Total Time Includes: Examination of the Patient, Discharge Planning, Medication Reconciliation, Communication With Other Providers and Other Discharge Plan Discharge Items Patient Disposition: Home - Home Health Services Reason For Visit: LEFT KNEE INFECTION Discharge Diagnosis: MSSA bacteremia Condition on Discharge: Fair Activity: Resume your previous activity Non-emergency contact: Primary Care Provider Call non-emergency contact if: you have any medication questions and your symptoms worsen Follow-up/Referrals: Guera Del Valle MD [Primary Care Provider] - (Date & Time 11/07/2023 11:00 AM Provider Guera Del Valle MD [facility] ) Zoe Mattson MD [Physician] - (Date & Time 12/09/2023 11:00 AM Provider Zoe Mattson MD Department Infectious Disease [facility] [place] ) Diet: Regular Addtl Attending Provider Instructions: You were admitted to the hospital due to infection in your blood. You will be on IV cefazolin 2 g 3 times a day along with oral rifampin 300 mg twice a day for the 6 weeks (till December 10, 2023). Then, You will be on oral cefadroxil along with oral rifampin for next 6-month. Then, You will be on cefadroxil for life. You are seen by Dr. Mattson from infectious disease from [facility]. You have an appointment with him on December 09, 2023. Please go to that appointment. Please follow-up with your primary care doctor as scheduled on November 07, 2023. The rifampin can decrease the efficacy of the antihypertensives(amlodipine and losartan). Please measure your blood pressure daily at home. Blood pressure meds needs to be changed if your blood pressure is on the higher side(> 140/90 on consistent basis) The omeprazole is changed to Protonix and it interacts with Rifampin. A new prescription has been sent. Addtl [employer] Provider Instructions: Weight bearing as tolerated left lower extremity with walker/cane/assistance as needed. Maintain dressing x 1 week from surgery then may remove and discard. May shower with KIRSTIE dressing in place(place battery pack outside of shower). Frequent ice and elevation to the knee. Frequent range of motion exercises for knee. Continue aspirin twice daily as a blood thinner x 4 weeks. Follow-up with Dr Brady ~ 10-14 days post-op. Call [phone] for appt Pending Studies at Discharge: No Stand-Alone Forms: [employer], Smoking Cessation Medications and DC Order Prescriptions: New rifampin 300 mg Capsule 300 mg PO BID 42 Days Qty: 84 0RF aspirin 81 mg Tablet,Delayed Release (Dr/Ec) 81 mg PO BID 28 Days Qty: 56 0RF pantoprazole 40 mg Tablet,Delayed Release (Dr/Ec) 40 mg PO QAM Qty: 30 0RF oxycodone 5 mg Tablet 5 - 10 mg PO Q6H PRN (Reason: pain) Qty: 15 0RF Continued losartan [Cozaar] 100 mg tablet 100 mg PO QAM oxycodone 5 mg tablet 5 - 10 mg PO Q6H PRN (Reason: pain) Qty: 30 0RF Rx Instructions: ongoing therapy, supervising dr svetlana brady. max 6 tabs in 24 hours loratadine [Claritin] 10 mg Tablet 10 mg PO DAILY amlodipine 5 mg tablet 5 mg PO DAILY Discontinued omeprazole 20 mg Tablet,Delayed Release (Dr/Ec) 20 mg PO QAM cephalexin [Keflex] 500 mg Capsule 500 mg PO Q8H Rx Instructions: Start Date 10/27/23 - End Date 11/01/23 Discharge Orders: Discharge Order (Routine); Ordered 11/01/23 Ordered By: Colt Browne Admission Data Admit Date/Time: 10/28/23 14:32 Attending Provider: Colt Browne Admit Provider: Tony Davey Primary Care Provider: Guera Del Valle Other Providers: Tony Davey; Stef Ames; Rito Arredondo; Dawit Cherry; Mae Hameed; Antony Brady; Rozina Goins; Ayad Mixon; Gallo Kimble; Scott Dacosta; Diony Park; Gallo Black; Carrillo Roblero; Fredrick Ferreira; Fabian Proctor; Rozina Diego; Justo Blakely; Joe Finley; Vernell Pedraza; Mike Montoya; Kanika Perea; Fortino Gillette; Flory Boyer; Sanford Green; Sixto Burgos; Luis Somers; Baljit Cade I.; Keny Newsome II; Mariel Parish; Scott Melissa; Javier Troy; Zoe Mattson; [facility]
== END 2023-11-01 17:30 | disposition home health service (06) | DRG 467 ==
LOC: ED 12:07 → SUATTDRO 14:32 → EDINP 14:32 → 3E 17:42 → 2W 20:19